=== PATIENT | male | born 1975 | race Two or more races ===

== ENCOUNTER 2025-06-02 21:37 | Emergency (ER) | payer MEDICAID, OTHER ==
[~2025-06-02] VITALS: Ht 167.6 cm; Wt 65.9 kg
--- NOTE | 2025-06-02 22:35 | ED.PDOC ---
GI ASSESSMENT HPI Comments 50 year old male presents to the ED via EMS with a chief complaint of suprapubic pain onset today (06/02/25) about 3 hours prior to ED arrival. Patient states he began experiencing sharp suprapubic pain radiating to LLQ and low back for the past 3 hours. Patient began experiencing intermittent suprapubic pain 3 days ago, pain worsen today. Daughter states patient began experiencing shortness of breath, chills, was cold to touch, 911 was called. Upon ED arrival temperature was 99.4 F, BP 116/90, O2 sat 99% on RA. Denies any PMHx as well as dizziness, blurry vision, nausea, vomiting, diarrhea, headache, dysuria, hematuria, melena, diarrhea, constipation. No other associated symptoms, modifiers, recent injuries or sick contacts present at this time. Chief Complaint: Abdominal Pain Time Seen by MD: 22:15 Reviewed Notes: Medications, Allergies Allergies: Coded Allergies: NO KNOWN ALLERGIES (Unverified , 06/02/25) Home Meds Active Scripts Metronidazole (Metronidazole) 500 Mg Tab, 500 MG PO BID for 7 Days, #14 TAB Prov:JOÃO NEWTON MD 06/03/25 Ciprofloxacin Hcl (Cipro) 250 Mg Tab, 250 MG PO BID for 7 Days, #14 TAB Prov:JOÃO NEWTON MD 06/03/25 Information Source: Patient, Relative (Child), Emergency Med Personnel Mode of Arrival: EMS Timing: Hours Duration: Since onset Prehospital treatment: None Quality: Sharp Severity: Moderate Recent: None Recent Hx of: None Pain Location: Suprapubic Modifying Factors: Nothing Associated sign and symptoms: Abdominal Pain Past Medical History PAST MEDICAL HISTORY: Denies Surgical History: Denies all surgeries Family History Family History: Reviewed,noncontributory to illness, No family hx of Cancer, No family hx of DM, No family hx of Heart rafael, No family hx of HTN, No family hx ofKidney rafael, No family hx of Liver rafael, No family hx of Lung rafael, No family hx of Stroke Social History Smoker: Non-Smoker Alcohol: Denies ETOH Use Drugs: Denies Drug Use Lives In: Home Constitutional: reports: chills; denies: diaphoresis, fatigue, fever, malaise, sweats, weakness, others EENTM: denies: blurred vision, double vision, ear bleeding, ear discharge, ear drainage, ear pain, ear ringing, eye pain, eye redness, hearing loss, mouth pain, mouth swelling, nasal discharge, nose bleeding, nose congestion, nose pain, photophobia, tearing, throat pain, throat swelling, voice changes, others Respiratory: reports: shortness of breath; denies: cough, hemoptysis, orthopnea, SOB at rest, SOB with excertion, stridor, wheezing, others Cardiovascular: denies: chest pain, dizzy spells, diaphoresis, Dyspnea on exertion, edema, irregular heart beat, left arm pain, lightheadedness, palpitations, PND, syncope, others Gastrointestinal: reports: abdominal pain, others (suprapubic); denies: abdomen distended, blood streaked bowels, constipated, diarrhea, dysphagia, difficulty swallowing, hematemesis, melena, nausea, poor appetite, poor fluid intake, rectal bleeding, rectal pain, vomiting Genitourinary: denies: burning, dysuria, flank pain, frequency, hematuria, incontinence, penile discharge, penile sore, pain, testicle pain, testicle swelling, urgency, others Neurological: denies: dizziness, fainting, headache, left sided numbness, left sided weakness, numbness, paresthesia, pre-existing deficit, right sided numbness, right sided weakness, seizure, speech problems, tingling, tremors, wea kness, others Musculoskeletal: reports: back pain; denies: gout, joint pain, joint swelling, muscle pain, muscle stiffness, neck pain, others Integumetry: denies: bruises, change in color, change in hair/nails, dryness, laceration, lesions, lumps, rash, wounds, others Allergic/Immunocompromised: denies: Difficulty Healing, Frequent Infections, Hives, Itching, others Hematologic/Lymphatic: denies: anemia, blood clots, easy bleeding, easy bruising, swollen glands, others Endocrine: denies: excessive hunger, excessive sweating, excessive thirst, excessive urination, flushing, intolerance to cold, intolerance to heat, unexplained weight gain, unexplained weight loss, others Psychiatric: denies: anxiety, bipolar disorder, depression, hopeless, panic disorder, schizophrenia, sleepless, suicidal, others All Other Systems: Reviewed and Negative Physical Exam General Appearance: Normal HEENT: Normal ENT Inspection, Pharynx Normal, TMs Normal Neck: Full Range of Motion, Non-Tender, Normal, Normal Inspection Respiratory: Chest Non-Tender, Lungs Clear, No Accessory Muscle Use, No Respiratory Distress, Normal Breath Sounds Cardiovascular: No Edema, No JVD, No Murmur, No Gallop, Normal Peripheral Pulses, Regular Rate/Rhythm Breast Exam: Deferred Gastrointestinal: No Organomegaly, Non Tender, No Pulsatile Mass, Normal Bowel Sounds, Soft Genitalia: Deferred Pelvic: Deferred Rectal: Deferred Extremities: No calf tenderness, Normal capillary refill, Normal inspection, Normal range of motion, Non-tender, No pedal edema Musculoskeletal : Apperance: Normal Neurologic: Alert, yield improvement engineer II-XII nml as Tested, No Motor Deficits, Normal Affect, Normal Mood, No Sensory Deficits Cerebellar Function: Normal Reflexes: Normal Skin: Dry, Normal Color, Warm Lymphatic: No Adenopathy Was a procedure done? Was a procedure done?: No GI differential Dx Differential Diagnosis: Appendicitis, UTI, Urolithiasis, Dehydration, Electrolyte Imbalance, Other X-Ray, Labs, Meds, VS Vital Signs Date Time Temp Pulse Resp B/P (MAP) Pulse Ox O2 Delivery O2 Flow Rate FiO2 06/03/25 05:23 98.3 113 16 125/69 (87) 99 98.3 06/03/25 05:19 113 20 99 Room Air* 0 21 06/03/25 04:56 129 22 130/79 06/03/25 02:31 78 16 98/67 06/03/25 01:23 99.2 107 18 100/65 (77) 97 99.2 06/03/25 01:22 107 18 100/65 06/02/25 21:46 99.4 88 20 116/60 99 99.4 Lab Test 06/03/25 02:30 06/02/25 22:40 Range/Units Urine Color Yellow Yellow Urine Clarity Clear Clear Urine pH 5.5 5.0-9.0 Urine Specific [place] > 1.050 H 1.001-1.035 Urine Protein Negative Negative Urine Ketones Negative Negative Urine Blood Trace H Negative /uL Urine Nitrite Negative Negative Urine Bilirubin Negative Negative Urine Urobilinogen 2 H Negative mg/dL Urine Leukocyte Esterase Negative Negative /uL Urine RBC 2 0 - 3 /hpf Urine Microscopic WBC 1 0-3 /HPF Urine Squamous Epithelial Cells Few <5 /hpf Urine Bacteria None seen None Seen /hpf Urine Hyaline Casts Few 0 - 2 /lpf Urine Glucose Normal Normal mg/dL White Blood Count 11.2 H 4.4-10.8 10^3/uL Red Blood Count 5.78 4.5-5.90 10^6/uL Hemoglobin 18.5 H 13.5-17.5 g/dL Hematocrit 52.4 41.0-53.0 % Mean Corpuscular Volume 90.6 80.0-100.0 fL Mean Corpuscular Hemoglobin 32.0 28.0-32.0 pg Mean Corpuscular Hemoglobin Concent 35.3 32.0-36.0 g/dL Red Cell Distribution Width 13.1 11.8-14.3 % Platelet Count 518 H 140-450 10^3/uL Mean Platelet Volume 7.5 6.9-10.8 fL Neutrophils (%) (Auto) 89.2 H 37.0-80.0 % Lymphocytes (%) (Auto) 8.5 L 10.0-50.0 % Monocytes (%) (Auto) 1.9 0.0-12.0 % Eosinophils (%) (Auto) 0.3 0.0-7.0 % Basophils (%) (Auto) 0.1 0.0-2.0 % Neutrophils # (Auto) 10.0 H 1.6-8.6 10 ^3/uL Lymphocytes # (Auto) 1.0 0.4-5.4 10 ^3/uL Monocytes # (Auto) 0.2 0-1.3 10 ^3/uL Eosinophils # (Auto) 0 0-0.8 10 ^3/uL Basophils # (Auto) 0 0-0.2 10 ^3/uL Nucleated Red Blood Cells 0.0 % Sodium Level 139 136-145 mmol/L Potassium Level 4.2 3.5-5.1 mmol/L Chloride Level 103 98-107 mmol/L Carbon Dioxide Level 28 20-31 mmol/L Anion Gap 8 5-15 Blood Urea Nitrogen 16 9-23 mg/dL Creatinine 1.24 0.700-1.30 mg/dL Glomerular Filtration Rate Calc 71 >90 mL/min BUN/Creatinine Ratio 12.9 10.0-20.0 Serum Glucose 111 H 74-106 mg/dL Calcium Level 9.7 8.7-10.4 mg/dL Total Bilirubin 0.8 0.2-1.0 mg/dL Aspartate Amino Transferase (AST) 68 H 13-40 U/L Alanine Aminotransferase (ALT) 76 H 7-40 U/L Alkaline Phosphatase 164 H 46-116 U/L Total Protein 7.7 5.7-8.2 g/dL Albumin 5.0 H 3.2-4.8 g/dL Lipase 35 12-53 U/L Current Medications Medications (Trade) Dose Ordered Sig/Lucy Route Start Time Stop Time Status Last Admin Ondansetron HCl (Zofran) 4 mg ONCE ONCE IV 06/02/25 22:45 06/02/25 22:46 DC 06/03/25 01:21 Sodium Chloride 1,000 ml @ 1,000 mls/hr Q1H ONCE IVB 06/02/25 22:45 06/02/25 23:44 DC 06/03/25 01:22 Morphine Sulfate 4 mg ONCE ONCE IV 06/02/25 22:45 06/02/25 22:46 DC 06/03/25 01:22 Ciprofloxacin (Cipro Tablet) 250 mg ONCE ONCE PO 06/03/25 04:45 06/03/25 04:46 DC 06/03/25 05:13 Metronidazole (Flagyl Tablet) 500 mg ONCE ONCE PO 06/03/25 04:45 06/03/25 04:46 DC 06/03/25 05:06 Hydromorphone HCl (Dilaudid Injection) 1 mg ONCE ONCE IM 06/03/25 05:00 06/03/25 05:01 DC 06/03/25 04:56 Time of 1ST Reevaluation: 22:45 Reevaluation 1ST: Unchanged Patient Education/Counseling: Diagnosis, Treatment, Prognosis Family Education/Counseling: Diagnosis, Treatment, Prognosis Additional Information The following tests were ordered, and results were reviewed by me: CBC, CMP, LIPASE, UA, CT AB PEL WITH IV CON Additional Information was gathered from interviewing the following independent historians: EMS, daughter I reviewed and agreed with the following test results read by other providers: CT AB PEL WITH IV CON I discussed treatment and results with medical personnel and: patient and daughter Comprehensive systems review obtained and negative except for what is stated in the HPI. SEPSIS Sepsis Screen Date sepsis recognized/suspect: Jun 02, 2025 Time Sepsis recognized/suspect: 2145 Recent Procedure: No On Antibiotic Therapy: No Respiratory Rate >20: No Heart Rate >90: No Temp<36 C (96.8 F) or >38.3 C: No SBP <90 or MAP <65 mmHG: No New Acute Mental Status Change: No Is the patient on CPAP, BIPAP,: No Physician Orders Ct Ab Pel With Iv Con Only (06/02/25 22:31) Vital Signs Date Time Temp Pulse Resp B/P (MAP) Pulse Ox O2 Delivery O2 Flow Rate FiO2 06/03/25 05:23 98.3 113 16 125/69 (87) 99 98.3 06/03/25 05:19 113 20 99 Room Air* 0 21 06/03/25 04:56 129 22 130/79 06/03/25 02:31 78 16 98/67 06/03/25 01:23 99.2 107 18 100/65 (77) 97 99.2 06/03/25 01:22 107 18 100/65 06/02/25 21:46 99.4 88 20 116/60 99 99.4 Laboratory Tests Test 06/02/25 22:40 White Blood Count 11.2 10^3/uL (4.4-10.8) H Medications Medications Dose Ordered Sig/Lucy Route Start Time Stop Time Status Last Admin Dose Admin Ciprofloxacin 250 mg ONCE ONCE PO 06/03/25 04:45 06/03/25 04:46 DC 06/03/25 05:13 Hydromorphone HCl 1 mg ONCE ONCE IM 06/03/25 05:00 06/03/25 05:01 DC 06/03/25 04:56 Metronidazole 500 mg ONCE ONCE PO 06/03/25 04:45 06/03/25 04:46 DC 06/03/25 05:06 Morphine Sulfate 4 mg ONCE ONCE IV 06/02/25 22:45 06/02/25 22:46 DC 06/03/25 01:22 Ondansetron HCl 4 mg ONCE ONCE IV 06/02/25 22:45 06/02/25 22:46 DC 06/03/25 01:21 Sodium Chloride 1,000 ml @ 1,000 mls/hr Q1H ONCE IVB 06/02/25 22:45 06/02/25 23:44 DC 06/03/25 01:22 Departure 1 Departure Time of Disposition: 01:00 Impression: Primary Impression: Abdominal pain Additional Impression: Diverticulitis of intestine Disposition: HOME / SELF CARE / HOMELESS Admit to: Med Surg Condition: Stable e-Prescriptions Metronidazole (Metronidazole) 500 Mg Tab 500 MG PO BID for 7 Days, #14 TAB Prov: JOÃO NEWTON MD 06/03/25 Ciprofloxacin Hcl (Cipro) 250 Mg Tab 250 MG PO BID for 7 Days, #14 TAB Prov: JOÃO NEWTON MD 06/03/25 Discharged With: Self Critical Care Note Critical Care Time?: No Stability Stability form required: No I personally scribed for JOÃO NEWTON MD ([email or web address]) on 06/02/25 at 22:35. Electronically submitted by Kait Moyer ([email or web address]). I personally scribed for JOÃO NEWTON MD ([email or web address]) on 06/02/25 at 22:51. Electronically submitted by Kait Moyer ([email or web address]). JOÃO NEWTON MD Jun 02, 2025 22:35
[2025-06-02 22:54] LABS: Nucleated Red Blood Cells % 0.0 %
[2025-06-02 22:55] LABS: Hematocrit 52.4 % (41.0-53.0); Hemoglobin 18.5 g/dL (13.5-17.5); Mean Corpuscular Hemoglobin 32.0 pg (28.0-32.0); Mean Corpuscular Volume 90.6 fL (80.0-100.0)
[2025-06-02 23:15] LABS: Anion Gap 8 (5-15); BUN/Creatinine Ratio 12.9 (10.0-20.0); Blood Urea Nitrogen 16 mg/dL (9-23); Calcium 9.7 mg/dL (8.7-10.4); Carbon Dioxide 28 mmol/L (20-31); Chloride 103 mmol/L (98-107); Lipase 35 U/L (12-53); Potassium 4.2 mmol/L (3.5-5.1); Sodium 139 mmol/L (136-145); Total Protein 7.7 g/dL (5.7-8.2)
[2025-06-02 23:16] LABS: Bilirubin, Total 0.8 mg/dL (0.2-1.0)
[2025-06-02 23:23] LABS: Alanine Aminotransferase 76 U/L (7-40); Albumin 5.0 g/dL (3.2-4.8); Alkaline Phosphatase 164 U/L (46-116); Glucose 111 mg/dL (74-106)
[2025-06-03] MEDS: ONDANSETRON HCL 4 MG/2 ML VIAL IV ONE (01:21)
[2025-06-03] MEDS: MORPHINE SULFATE 4 MG/ML SYR/VIAL IV ONE (01:22)
[2025-06-03] MEDS: SODIUM CHLORIDE 0.9% 1,000 ML IVB ONE (01:22)
[2025-06-03] MEDS: IOHEXOL 300 MG/ML 100ML BOTTLE IJ ONE (02:14)
--- NOTE | 2025-06-03 02:40 | DVH ---
Exam: CT CT AB PEL WITH IV CON ONLY History: LLQ pain COMPARISON: None Technique: Multidetector spiral CT of the abdomen and pelvis was performed from lung bases to pubic s ymphysis. Intravenous contrast was administered during this examination. Portal venous imaging was o btained. Axial, coronal and sagittal multiplanar reformats were performed by the technologist on a [employer] workstation. Radiation Dose : 1. Abdomen/Pelvis: CTDIvol 10.42 mGy, DLP 599.51 mGy*cm. CONTRAST: Type of contrast: Omnipaque 300 Contrast injected: 100 ml Findings: Lung Bases: No acute or significant lung base finding. Moderate posterior bibasilar atelectasis. Nor mal heart size. No pleural or pericardial effusion. Liver: The liver is enlarged, measuring 20.1 cm in craniocaudal dimension. No focal lesions. Normal hepatic vascular enhancement. Gallbladder and Biliary Tree: Cholelithiasis. Spleen: Unremarkable Pancreas: The pancreas is normal in appearance without focal lesions or abnormal enhancement. Adrenal Glands: Unremarkable Kidneys: No hydronephrosis. Bladder: Unremarkable Bowel: Moderate gastric distention. Significant circumferential wall thickening and intramural edema of the distal descending and proximal sigmoid colon in the presence of multiple diverticula with exte nsive adjacent inflammatory changes. No evidence of organized fluid collection to suggest abscess, no r is there evidence of perforation. The small bowel is normal in its course and caliber. The appendix is normal. Ascites: Small volume lower abdominal and pelvic ascites. Lymphadenopathy: No mesenteric, retroperitoneal or periportal lymphadenopathy. Abdominal Wall and Mesentery: Unremarkable. Vasculature: The visualized abdominal aorta is normal in size and caliber. Atherosclerotic vascular c alcifications. Abdominal and pelvic vessels demonstrate normal enhancement. Pelvic Organs: The prostate is enlarged, measuring 6.1 cm in transverse dimension. Musculoskeletal: No aggressive focal bony lesions, acute fractures or dislocation. IMPRESSION: 1. Acute diverticulitis of the distal descending /proximal sigmoid colon with adjacent inflammatory c hanges and small volume ascites. No definite evidence of abscess or perforation of the hollow viscus at this time. 2. Cholelithiasis. 3. Hepatomegaly. 4. Prostatomegaly. Radiation optimization: All CT scans at this facility use at least one of these dose optimization carmencita hniques: automated exposure control mA and/or kV adjustment per patient size (includes targeted exam s where dose is matched to clinical indication) or iterative reconstruction.
[2025-06-03 03:20] LABS: Urine Protein, UAD Negative (Negative)
[2025-06-03] MEDS ORDERED: MET500T PO (04:36)
[2025-06-03] MEDS ORDERED: CIPR-273 PO (04:36)
[2025-06-03] MEDS: HYDROmorphone HCL 2 MG/ML VL/or syr IM ONE (04:56)
[2025-06-03] MEDS: metroNIDAZOLE 500 MG TAB PO ONE (05:06)
[2025-06-03] MEDS: CIPROFLOXACIN HYDROCHLORIDE 250 MG TAB PO ONE (05:13)
[2025-06-03 05:19] VITALS: PULSE 113; RESP 20; O2SAT 99
[2025-06-03 05:23] VITALS: BP 125/69; PULSE 113; RESP 16; TEMP 98.3; O2SAT 99
== END 2025-06-03 05:24 | disposition home or self-care (01) ==
LOC: EDBD 21:37 → ER 21:37
DX: K57.32 Diverticulitis of large intestine without perforation or abscess without bleeding (principal); R10.2 Pelvic and perineal pain; Z79.899 Other long term (current) drug therapy
CPT/HCPCS: 36415; 74177; 80053; 81001; 83690; 85025; 96361; 96372; 96374; 96375; 99285; J1171; J2270; J2405; J7030; Q9967

== ENCOUNTER 2025-06-15 08:05 | Inpatient (IN) | payer MEDICAID ==
[~2025-06-15] VITALS: Ht 165.1 cm; Wt 66.6 kg
[~2025-06-15 08:05] MED LIST: CIPR-273 PO; MET500T PO
--- NOTE | 2025-06-15 08:35 | ED.PDOC ---
HPI (NEURO) HPI Comments 50 y/o M, with no prior medical history presents to the ED for CC of right sided weakness. Patient states, he has been experiencing right sided arm weakness with associated numbness sudden onset, 0600 this morning. Patient reports, to have lose of child attendant strength in his right hand and being unable to close his hand into a fist. Patient denies blurred vision, slurred speech, or headache. No other symptoms or modifying factors present at this time. Chief Complaint: Right Sided Weakness Time Seen by MD: 08:15 Reviewed Notes: Nurses Notes, Medications, Allergies Information Source: Patient Mode of Arrival: Ambulatory Severity: Moderate Dizziness/Weakness Severity: Unable to do activities Headache Severity: None Timing: Minutes Duration: Since onset Prehospital treatment: None Weakness Location: (R) Arm Numbness Location: (R) Arm Onset: At rest Circumstances: Spontaneous Symptoms: Weakness Before: Normal During: Awake After: Normal Mentation History of: None Modifying factors: Nothing Associated Signs and Symptoms: Weakness, Numbness Past Medical History PAST MEDICAL HISTORY: Denies Surgical History: Denies all surgeries Family History Family History: Reviewed,noncontributory to illness, No family hx of Cancer, No family hx of DM, No family hx of Heart rafael, No family hx of HTN, No family hx of Kidney rafael, No family hx of Liver rafael, No family hx of Lung rafael, No family hx of Stroke Social History Smoker: Non-Smoker Alcohol: Denies ETOH Use Drugs: Denies Drug Use Lives In: Home Constitutional: denies: chills, diaphoresis, fatigue, fever, malaise, sweats, weakness, others EENTM: denies: blurred vision, double vision, ear bleeding, ear discharge, ear drainage, ear pain, ear ringing, eye pain, eye redness, hearing loss, mouth pain, mouth swelling, nasal discharge, nose bleeding, nose congestion, nose pain, photophobia, tearing, throat pain, throat swelling, voice changes, others Respiratory: denies: cough, hemoptysis, orthopnea, SOB at rest, shortness of breath, SOB with excertion, stridor, wheezing, others Cardiovascular: denies: chest pain, dizzy spells, diaphoresis, Dyspnea on exertion, edema, irregular heart beat, left arm pain, lightheadedness, palpitations, PND, syncope, others Gastrointestinal: denies: abdomen distended, abdominal pain, blood streaked bowels, constipated, diarrhea, dysphagia, difficulty swallowing, hematemesis, melena, nausea, poor appetite, poor fluid intake, rectal bleeding, rectal pain, vomiting, others Genitourinary: denies: burning, dysuria, flank pain, frequency, hematuria, incontinence, penile discharge, penile sore, pain, testicle pain, testicle swelling, urgency, others Neurological: reports: right sided weakness; denies: dizziness, fainting, headache, left sided numbness, left sided weakness, numbness, paresthesia, pre- existing deficit, right sided numbness, seizure, speech problems, tingling, tremors, weakness, others Musculoskeletal: denies: back pain, gout, joint pain, joint swelling, muscle pain, muscle stiffness, neck pain, others Integumetry: denies: bruises, change in color, change in hair/nails, dryness, laceration, lesions, lumps, rash, wounds, others Allergic/Immunocompromised: denies: Difficulty Healing, Frequent Infections, Hives, Itching, others Hematologic/Lymphatic: denies: anemia, blood clots, easy bleeding, easy bruising, swollen glands, others Endocrine: denies: excessive hunger, excessive sweating, excessive thirst, excessive urination, flushing, intolerance to cold, intolerance to heat, unexplained weight gain, unexplained weight loss, others Psychiatric: denies: anxiety, bipolar disorder, depression, hopeless, panic disorder, schizophrenia, sleepless, suicidal, others All Other Systems: Reviewed and Negative Physical Exam General Appearance: No Apparent Distress, Normal HEENT: Normal ENT Inspection, Pharynx Normal Neck: Full Range of Motion, Non-Tender, Normal, Normal Inspection Respiratory: Chest Non-Tender, Lungs Clear, No Accessory Muscle Use, No Respiratory Distress, Normal Breath Sounds Cardiovascular: No Edema, No Murmur, No Gallop, Normal Peripheral Pulses, Reg ular Rate/Rhythm Breast Exam: Deferred Gastrointestinal: No Organomegaly, Non Tender, No Pulsatile Mass, Normal Bowel Sounds, Soft Genitalia: Deferred Pelvic: Deferred Rectal: Deferred Extremities: No calf tenderness, Normal capillary refill, Normal inspection, Normal range of motion, Non-tender, No pedal edema Musculoskeletal : Apperance: Normal Neurologic: Alert, traveling crane operator II-XII nml as Tested, Normal Affect, Normal Mood, No Sensory Deficits, Other (right arm weakness) Cerebellar Function: Normal Reflexes: Normal Skin: Dry, Normal Color, Warm Lymphatic: No Adenopathy Was a procedure done? Was a procedure done?: No Differential Diagnosis (SZ) Seizure: N/A CVA: CVA, Mass Lesion, TIA X-Ray, Labs, Meds, VS Vital Signs Date Time Temp Pulse Resp B/P (MAP) Pulse Ox O2 Delivery O2 Flow Rate FiO2 06/15/25 08:13 85 06/15/25 08:05 98.1 86 18 130/84 96 98.1 Lab Test 06/15/25 08:20 Range/Units White Blood Count 9.2 4.4-10.8 10^3/uL Red Blood Count 5.31 4.5-5.90 10^6/uL Hemoglobin 16.6 13.5-17.5 g/dL Hematocrit 47.8 41.0-53.0 % Mean Corpuscular Volume 90.1 80.0-100.0 fL Mean Corpuscular Hemoglobin 31.2 28.0-32.0 pg Mean Corpuscular Hemoglobin Concent 34.7 32.0-36.0 g/dL Red Cell Distribution Width 13.2 11.8-14.3 % Platelet Count 635 H 140-450 10^3/uL Mean Platelet Volume 7.0 6.9-10.8 fL Neutrophils (%) (Auto) 77.4 37.0-80.0 % Lymphocytes (%) (Auto) 16.3 10.0-50.0 % Monocytes (%) (Auto) 4.6 0.0-12.0 % Eosinophils (%) (Auto) 1.2 0.0-7.0 % Basophils (%) (Auto) 0.5 0.0-2.0 % Neutrophils # (Auto) 7.1 1.6-8.6 10 ^3/uL Lymphocytes # (Auto) 1.5 0.4-5.4 10 ^3/uL Monocytes # (Auto) 0.4 0-1.3 10 ^3/uL Eosinophils # (Auto) 0.1 0-0.8 10 ^3/uL Basophils # (Auto) 0 0-0.2 10 ^3/uL Nucleated Red Blood Cells 0.1 % Prothrombin Time 11.2 9.3-11.8 sec Prothrombin Time INR 1.06 0.9-1.15 Activated Partial Thromboplast Time 27.6 24.5-34.5 SEC Sodium Level 141 136-145 mmol/L Potassium Level 3.7 3.5-5.1 mmol/L Chloride Level 104 98-107 mmol/L Carbon Dioxide Level 28 20-31 mmol/L Anion Gap 9 5-15 Blood Urea Nitrogen 9 9-23 mg/dL Creatinine 0.80 0.700-1.30 mg/dL Glomerular Filtration Rate Calc 108 >90 mL/min BUN/Creatinine Ratio 11.3 10.0-20.0 Serum Glucose 100 74-106 mg/dL Calcium Level 9.3 8.7-10.4 mg/dL Magnesium Level 2.1 1.6-2.6 mg/dL Total Bilirubin 0.5 0.2-1.0 mg/dL Aspartate Amino Transferase (AST) 16 13-40 U/L Alanine Aminotransferase (ALT) 12 7-40 U/L Alkaline Phosphatase 77 46-116 U/L Troponin I High Sensitivity 3 L </=54 ng/L B-Type Natriuretic Peptide 22.07 0-100 pg/mL Total Protein 7.6 5.7-8.2 g/dL Albumin 4.5 3.2-4.8 g/dL Time of 1ST Reevaluation: 08:45 Reevaluation 1ST: Unchanged Patient Education/Counseling: Diagnosis, Treatment Family Education/Counseling: No Family Present Departure 1 Departure Time of Disposition: 09:13 (Patient with a acute stroke. Patient is out of the window for tPA. We will admit patient for further workup and expert consultation) Impression: Primary Impression: Acute stroke due to ischemia Additional Impression: Right hand weakness Disposition: 09 ADMITTED INPATIENT Admit to: Tele Condition: Guarded Critical Care Note Critical Care Time?: Yes Critical care comment: Acute Stroke Authorized and Performed by: Corbin Crisostomo MD Total critical care time: Approximately 114 minutes Due to a high probability of clinically significant, life threatening deterioration, the patient required my highest level of preparedness to intervene emergently and I personally spent this critical care time directly and personally managing the patient. This critical care time included obtaining a history; examining the patient; pulse oximetry; ordering and review of studies; arranging urgent treatment with development of a management plan; evaluation of patient's response to treatment; frequent reassessment; and, discussions with other providers. This critical care time was performed to assess and manage the high probability of imminent, life-threatening deterioration that could result in multi-organ failure. It was exclusive of separately billable procedures and treating other patients and teaching time. Please see my other sections and the rest of the note for further information on patient assessment and treatment. Stability Stability form required: No Heart Score Heart Score: Heart Score Response (Comments) Value History N/A 0 EKG N/A 0 Age N/A 0 Risk Factors N/A 0 Troponin N/A 0 Total 0 I personally scribed for CORBIN CRISOSTOMO MD ([email or web address]) on 06/15/25 at 08:35. Electronically submitted by Chiquita Strange ([email or web address]). CORBIN CRISOSTOMO MD Jun 15, 2025 08:35
[2025-06-15 08:41] LABS: Hematocrit 47.8 % (41.0-53.0); Hemoglobin 16.6 g/dL (13.5-17.5); Mean Corpuscular Hemoglobin 31.2 pg (28.0-32.0); Mean Corpuscular Volume 90.1 fL (80.0-100.0); Nucleated Red Blood Cells % 0.1 %
[2025-06-15 08:53] LABS: Alanine Aminotransferase 12 U/L (7-40); Albumin 4.5 g/dL (3.2-4.8); Alkaline Phosphatase 77 U/L (46-116); Anion Gap 9 (5-15); BUN/Creatinine Ratio 11.3 (10.0-20.0); Calcium 9.3 mg/dL (8.7-10.4); Carbon Dioxide 28 mmol/L (20-31); Chloride 104 mmol/L (98-107); Glucose 100 mg/dL (74-106); Magnesium 2.1 mg/dL (1.6-2.6); Potassium 3.7 mmol/L (3.5-5.1); Sodium 141 mmol/L (136-145); Total Protein 7.6 g/dL (5.7-8.2)
[2025-06-15 08:54] LABS: Bilirubin, Total 0.5 mg/dL (0.2-1.0); Blood Urea Nitrogen 9 mg/dL (9-23); INR 1.06 (0.9-1.15); Partial Thromboplastin Time 27.6 SEC (24.5-34.5); Prothrombin Time 11.2 sec (9.3-11.8)
--- NOTE | 2025-06-15 08:56 | DVH ---
EXAM: CT STROKE CTH INDICATION: right arm weakness 2 hours TECHNIQUE: CT of the head without intravenous contrast. Coronal and sagittal reformatted images are s ubmitted. Radiation Dose : 1. Head: CT Dose: CTDI volume is 54.68 mGy. Dose-length product is 1.71 mGy*cm The dose indicators for CT are the volume Computed Tomography (CT) Dose Index (CTDIvol) and the Dose Length Product (DLP), and are measured in units of mGy and mGy-cm, respectively. These indicators are not patient dose, but values generated from the CT scanner acquisition factors. The report includes radiation exposure data for exposures received during this examination. All CT scans at this medical facility are performed using dose modulation techniques as appropriate to a performed exam including the following: Automated exposure control was utilized; adjustment of the MA and/or KV according to patient size; and use of iterative reconstruction technique. COMPARISON: None FINDINGS: There is no evidence of acute intracranial hemorrhage, extra-axial collection, mass effect, midline s hift, herniation or hydrocephalus. The ventricles are patent. No hydrocephalus. Basal cisterns are patent. There is hypodensity with loss of dumont-white matter differentiation in the left parietal lobe. The visualized paranasal sinuses and mastoid air cells are clear. No depressed calvarial fracture. The surrounding soft tissues are unremarkable. IMPRESSION: 1. Hypodensity with loss of dumont-white matter differentiation in the left parietal lobe consistent wi th acute or subacute infarct. No acute intracranial hemorrhage or midline shift.
--- NOTE | 2025-06-15 08:59 | DVH ---
EXAM: XY CHEST XRAY 1 VIEW Indication: right arm weakness Technique: Single frontal view of the chest was obtained Comparison: None FINDINGS: Lines and Tubes: None Lungs: No focal consolidation. Pleura: No effusion. No pneumothorax. Cardiomediastinal contours: Unremarkable Bones: No acute osseous abnormality. IMPRESSION: No acute cardiopulmonary disease.
[2025-06-15] MEDS ORDERED: ACETAMINOPHEN 325 MG TAB PO PRN ×2 (09:45→10:00)
[2025-06-15] MEDS ORDERED: CLOPIDOGREL BISULFATE 75 MG TAB PO ONE (09:45)
[2025-06-15] MEDS ORDERED: MORPHINE SULFATE INJ 2 MG/ml SYRG IV PRN ×2 (09:45→10:00)
[2025-06-15] MEDS ORDERED: DOCUSATE SOD 100 MG CAP PO PRN ×2 (09:45→10:00)
[2025-06-15] MEDS ORDERED: ONDANSETRON HCL 4 MG/2 ML VIAL IV PRN ×2 (09:45→10:00)
[2025-06-15] MEDS ORDERED: NITROGLYCERIN 0.4 MG SL TAB SL PRN ×2 (09:45→10:00)
[2025-06-15] MEDS ORDERED: HYDROcodone-ACET 5/325MG TAB PO PRN (09:45)
[2025-06-15] MEDS: CLOPIDOGREL BISULFATE 75 MG TAB PO SCH (10:00)
[2025-06-15] MEDS ORDERED: CLOPIDOGREL BISULFATE 75 MG TAB PO SCH (10:00)
--- NOTE | 2025-06-15 10:15 | DVHHP2 ---
History of Present Illness Reason for Visit: Right hand weakness History of Present Illness Armando Pulido is a 50-year-old male with no significant past medical history however, he has never been to see a primary care provider, who came in for right hand weakness. Patient states he went to bed about 2200 last night. Woke up a bout 0530, and was feeling off, thought his hand was just asleep. He preceded to get ready and go to work. About 0700 when he was at work he realized that he could not hold a pen to write. He left work, went home changed, and then came to the ER. Initial CT scan show positive stroke, EKG was normal SR. Patient will be admitted for further workup and evaluation. Past Surgical History: None Smoke: Quit (2-3 year ago) ALCOHOL: none Drugs: None Lives: with Family Domestic Violence: Neg Review of Systems Constitutional: No: Fever, Chills, Sweats, Weakness, Malaise, Other Eyes: No: Pain, Vision change, Conjunctivae inflammation, Eyelid inflammation, Other, Redness ENT: No: Ear pain, Ear discharge, Nose pain, Nose discharge, Nose congestion, Mouth pain, Mouth swelling, Throat pain, Throat swelling, Other Respiratory: No: Cough, Dry, Shortness of breath, SOB with excertion, Wheezing, Hemoptysis, Pleuritic Pain, Sputum, Wheezing, Other Cardiovascular: No: Chest Pain, Palpitations, Orthopnea, Paroxysmal Noc. Dyspnea, Edema, Lt Headedness, Other Gastrointestinal: No: Nausea, Vomiting, Abdominal Pain, Diarrhea, Constipation, Melena, Hematochezia, Other Genitourinary: No Dysuria, No Frequency, No Incontinence, No Hematuria, No Ret ention, No Other Musculoskeletal: No: other, neck pain, shoulder pain, arm pain, back pain, hand pain, leg pain, foot pain Skin: No: Rash, Lesions, Jaundice, Bruising, Other Neurological: Weakness (right hand); No: Numbness, Incoordination, Change in speech, Confusion, Seizures, Other Allergies: Coded Allergies: NO KNOWN ALLERGIES (Unverified , 06/02/25) Exam Vital Signs Vital Signs Date Time Temp Pulse Resp B/P (MAP) Pulse Ox O2 Delivery O2 Flow Rate FiO2 06/15/25 09:22 98.4 80 20 111/69 (83) 95 98.4 06/15/25 09:22 Room Air General Appearance: Alert, Oriented X3, Cooperative, mild distress HEENT: Atraumatic, PERRLA, EOMI Respiratory: Clear to auscultation, Normal air movement Cardiovascular: Regular rate, Normal S1, Normal S2 Abdominal: Normal bowel sounds, Soft, No tenderness, No hepatospenomegaly Extremities: No clubbing, No cyanosis, No edema, Normal pulses, Other (right hand weakness) Skin: No rashes, No breakdown, No significant lesion Neuro: Normal gait, Normal speech, Normal tone, Other (Strength 3/5 in right hand) Psych/Mental Status: Mental status NL, Mood NL Labs/Xrays Labs Test 06/15/25 08:20 Range/Units White Blood Count 9.2 4.4-10.8 10^3/uL Red Blood Count 5.31 4.5-5.90 10^6/uL Hemoglobin 16.6 13.5-17.5 g/dL Hematocrit 47.8 41.0-53.0 % Mean Corpuscular Volume 90.1 80.0-100.0 fL Mean Corpuscular Hemoglobin 31.2 28.0-32.0 pg Mean Corpuscular Hemoglobin Concent 34.7 32.0-36.0 g/dL Red Cell Distribution Width 13.2 11.8-14.3 % Platelet Count 635 H 140-450 10^3/uL Mean Platelet Volume 7.0 6.9-10.8 fL Neutrophils (%) (Auto) 77.4 37.0-80.0 % Lymphocytes (%) (Auto) 16.3 10.0-50.0 % Monocytes (%) (Auto) 4.6 0.0-12.0 % Eosinophils (%) (Auto) 1.2 0.0-7.0 % Basophils (%) (Auto) 0.5 0.0-2.0 % Neutrophils # (Auto) 7.1 1.6-8.6 10 ^3/uL Lymphocytes # (Auto) 1.5 0.4-5.4 10 ^3/uL Monocytes # (Auto) 0.4 0-1.3 10 ^3/uL Eosinophils # (Auto) 0.1 0-0.8 10 ^3/uL Basophils # (Auto) 0 0-0.2 10 ^3/uL Nucleated Red Blood Cells 0.1 % Prothrombin Time 11.2 9.3-11.8 sec Prothrombin Time INR 1.06 0.9-1.15 Activated Partial Thromboplast Time 27.6 24.5-34.5 SEC Sodium Level 141 136-145 mmol/L Potassium Level 3.7 3.5-5.1 mmol/L Chloride Level 104 98-107 mmol/L Carbon Dioxide Level 28 20-31 mmol/L Anion Gap 9 5-15 Blood Urea Nitrogen 9 9-23 mg/dL Creatinine 0.80 0.700-1.30 mg/dL Glomerular Filtration Rate Calc 108 >90 mL/min BUN/Creatinine Ratio 11.3 10.0-20.0 Serum Glucose 100 74-106 mg/dL Calcium Level 9.3 8.7-10.4 mg/dL Magnesium Level 2.1 1.6-2.6 mg/dL Total Bilirubin 0.5 0.2-1.0 mg/dL Aspartate Amino Transferase (AST) 16 13-40 U/L Alanine Aminotransferase (ALT) 12 7-40 U/L Alkaline Phosphatase 77 46-116 U/L Troponin I High Sensitivity 3 L </=54 ng/L B-Type Natriuretic Peptide 22.07 0-100 pg/mL Total Protein 7.6 5.7-8.2 g/dL Albumin 4.5 3.2-4.8 g/dL EXAM: XY CHEST XRAY 1 VIEW FINDINGS: Lines and Tubes: None Lungs: No focal consolidation. Pleura: No effusion. No pneumothorax. Cardiomediastinal contours: Unremarkable Bones: No acute osseous abnormality. IMPRESSION: No acute cardiopulmonary disease. EXAM: CT STROKE CTH FINDINGS: There is no evidence of acute intracranial hemorrhage, extra-axial collection, mass effect, midline shift, herniation or hydrocephalus. The ventricles are patent. No hydrocephalus. Basal cisterns are patent. There is hypodensity with loss of dumont-white matter differentiation in the left parietal lobe. The visualized paranasal sinuses and mastoid air cells are clear. No depressed calvarial fracture. The surrounding soft tissues are unremarkable. IMPRESSION: 1. Hypodensity with loss of dumont-white matter differentiation in the left parietal lobe consistent with acute or subacute infarct. No acute intracranial hemorrhage or midline shift. SEPSIS Sepsis Screen Date sepsis recognized/suspect: Jun 15, 2025 Time Sepsis recognized/suspect: 805 Recent Procedure: No On Antibiotic Therapy: No Respiratory Rate >20: No Heart Rate >90: No Temp<36 C (96.8 F) or >38.3 C: No SBP <90 or MAP <65 mmHG: No New Acute Mental Status Change: No Is the patient on CPAP, BIPAP,: No Physician Orders Stroke Assessment (06/15/25 08:11) Vital Signs .PER UNIT PROTOCOL (06/15/25 08:11) Digitizer Operator (06/15/25 08:11) Accurate Weight In Kg (06/15/25 08:11) Electrocardigram (06/15/25 08:11) Accucheck (06/15/25 08:11) Ct Head Cva (06/15/25 08:11) Chest Xray 1 View (06/15/25 08:11) * Neurology Consult (06/15/25 08:11) 2 Large Bore Ivs (20mg Or Larg (06/15/25 08:11) Nursing Dysphagia Screen (06/15/25 08:11) Neuro Checks Per Unit Protocol (06/15/25 08:11) Electrocardigram (06/15/25 09:11) Electrocardigram (06/15/25 11:11) Troponin-I Hs (06/15/25 09:11) Troponin-I Hs (06/15/25 11:11) Admit (06/15/25 09:36) Code Status (06/15/25 09:36) Sodium Chloride Lock (Saline Lock Ns) (06/15/25 14:00) Hydrocodone-Acet 5/325mg Tab ([place] 5/32 (06/15/25 09:45) Ondansetron Hcl (Zofran) (06/15/25 09:45) Docusate Sodium Capsule (Colace Capsule) (06/15/25 09:45) Complete Blood Count (06/16/25 04:00) Comprehensive Metabolic Panel (06/16/25 04:00) Echo 2d Mode Cardiac Dop (06/15/25 09:36) Condition: Serious (06/15/25 09:36) Acetaminophen Tablet (Tylenol Tablet) (06/15/25 09:45) Nitroglycerin Sublingual (Ntrostat Subli (06/15/25 09:45) Morphine Sulfate Injection (06/15/25 09:45) Stat Ekg For Chest Pain (06/15/25 09:36) Notify Md Of Changes From Base (06/15/25 09:36) Appliance Adjuster For 24 Hours (06/15/25 09:36) Emergency Dysrhythmia Protocol (06/15/25 09:36) Rhythm Strips Once Every Shift (06/15/25 09:36) Vital Signs Date Time Temp Pulse Resp B/P (MAP) Pulse Ox O2 Delivery O2 Flow Rate FiO2 06/15/25 09:22 98.4 80 20 111/69 (83) 95 98.4 06/15/25 09:22 80 20 95 Room Air 06/15/25 08:13 85 06/15/25 08:05 98.1 86 18 130/84 96 98.1 Laboratory Tests Test 06/15/25 08:20 White Blood Count 9.2 10^3/uL (4.4-10.8) Assessment/Plan Assessment/Plan Assessment: Acute stroke due to ischemia, Plan: Admit to Tele, Neurology consult, ECHO, Carotid duplex, MRI of the brain, EKG, Lipid panel, A1c, TSH, Start on ASA, Lipitor, and Plavix, Occupational therapy, Social service consult for outpatient therapy, Plan discussed with: Patient My Orders Orders - MAKI MARTIN Procedure Category Date Status Time Admit ADMIT 06/15/25 Verified 09:36 Code Status CODE 06/15/25 Verified 09:36 Sodium Chloride Lock PHA 06/15/25 Verified (Saline Lock Ns) 14:00 Hydrocodone-Acet PHA 06/15/25 Verified 5/325mg Tab ([place] 09:45 Ondansetron Hcl PHA 06/15/25 Verified (Zofran) 09:45 Docusate Sodium PHA 06/15/25 Verified Capsule (Colace 09:45 Complete Blood Count LAB 06/16/25 Verified 04:00 Comprehensive LAB 06/16/25 Verified Metabolic Panel 04:00 Echo 2d Mode Cardiac US 06/15/25 Verified DOP 09:36 Condition: Serious LINDA 06/15/25 Verified 09:36 Acetaminophen Tablet PHA 06/15/25 Verified (Tylenol Tablet) 09:45 Nitroglycerin PHA 06/15/25 Verified Sublingual (Ntrostat 09:45 Morphine Sulfate PHA 06/15/25 Verified Injection 09:45 Stat Ekg For Chest LINDA 06/15/25 Verified Pain 09:36 Notify Of Changes [facility] 06/15/25 Verified From Base 09:36 Appliance Adjuster For [facility] 06/15/25 Verified 24 Hours 09:36 Emergency Dysrhythmia [facility] 06/15/25 Verified Protocol 09:36 Rhythm Strips Once [facility] 06/15/25 Verified Every Shift 09:36 Date of Service: Jun 15, 2025 Billing Provider: MAKI MARTIN Common Visit Codes: [id number] INP/OBS CARE (HIGH) MAKI MARTIN Jun 15, 2025 10:15
--- NOTE | 2025-06-15 10:42 | DVH ---
EXAMINATION: MRI BRAIN HEAD WO CONTRAST INDICATION: Acute stroke due to ischemia COMPARISON: CT scan of the head performed earlier same date. TECHNIQUE: Multiplanar, multisequence magnetic resonance imaging of the brain was performed without the use of i ntravenous contrast. FINDINGS: There is restricted diffusion in the left parietal lobe, confirming the acute infarcts seen on CT sca n of the head same date. Additional serpiginous foci of restricted diffusion in the left occipital a nd left posterior frontal lobe consistent with smaller acute cortical infarcts. No intracranial hemor rhage. No mass effect. There is periventricular/deep white matter T2/FLAIR hyperintensity is nonspecific, but most commonly associated with chronic microvascular disease. The ventricles and sulci are normal in size for age. Clear basal cisterns. Flow voids in the major intracranial vessels are maintained. No abnormality of the orbits. Paranasal sinuses and mastoid air cells are clear. No abnormality of the visualized osseous structures and extracranial soft tissues. IMPRESSION: 1. Acute infarct seen in the left parietal lobe similar to prior CT scan of the head performed same d ate and communicated to the ordering clinician at the time of the CT interpretation. Additional smal ler acute cortical infarcts in the left occipital and left frontal lobe.
--- NOTE | 2025-06-15 10:45 | DVH ---
Carotid Duplex Clinical History: Acute stroke due to ischemia Comparison: CT STROKE CTH on DOS: 06/15/25 Technique: Duplex Doppler evaluation of the extracranial carotid and vertebral arteries including color Doppler and spectral/pulsed waveform analysis was performed. Findings: RIGHT SIDE: The peak systolic velocities are 112 cm/s in the CCA, 88 cm/s in the ICA. The ICA/CCA ratio is 0.8. The external carotid artery is patent with peak systolic velocity of 56 cm/s proximally. There is appropriate antegrade flow in the right vertebral artery. LEFT SIDE: The peak systolic velocities are 78 cm/s in the CCA, 74 cm/s in the ICA. The ICA/CCA ratio is 0.9. The external carotid artery is patent with peak systolic velocity of 66 cm/s proximally. There is appropriate antegrade flow in the left vertebral artery. IMPRESSION: No hemodynamically significant stenosis noted in the right carotid system. No hemodynamically significant stenosis noted in the left carotid system. Reference: Radiology 2003; 229:340-346 Normal ICA PSV is <125 cm/sec and no plaque or intimal thickening is visible sonographically addition al criteria include ICA/CCA PSV ratio <2.0 and ICA EDV <40 cm/sec <50% ICA stenosis ICA PSV is <125 cm/sec and plaque or intimal thickening is visible sonographically additional criteria include ICA/CCA PSV ratio <2.0 and ICA EDV <40 cm/sec 50-69% ICA stenosis ICA PSV is 125-230 cm/sec and plaque is visible sonographically additional criter ia include ICA/CCA PSV ratio of 2.0-4.0 and ICA EDV of 40-100 cm/sec 70% ICA stenosis but less than near occlusion ICA PSV is >230 cm/sec and visible plaque and luminal narrowing are seen at dumont-scale and color Doppler ultrasound (the higher the Doppler parameters lie above the threshold of 230 cm/sec, the greater the likelihood of severe disease) additional criteria include ICA/CCA PSV ratio >4 and ICA EDV >100 cm/sec
[2025-06-15 11:13] VITALS: PULSE 74; RESP 15; O2SAT 96
[2025-06-15] MEDS: CLOPIDOGREL BISULFATE 75 MG TAB PO ONE (11:13)
[2025-06-15] MEDS ORDERED: SODIUM CHLOR 0.9% PF (SALINE LOCK) 10ML VIAL/SYR IV SCH (14:00)
[2025-06-15] MEDS: SODIUM CHLOR 0.9% PF (SALINE LOCK) 10ML VIAL/SYR IV SCH (14:00)
--- NOTE | 2025-06-15 14:50 | DVHSR ---
APPROVED REPORT EXAM: Two-dimensional and M-mode echocardiogram with Doppler, color Doppler and Bubble Study. Blood Pressure: 111/69 mmHg INDICATION Acute stroke due to ischemia RISK FACTORS Height: 5'5", Weight: 145 DIMENSIONS LVDd4.0 (3.8-5.7cm)LA (2D)3.5 (1.9-4.0cm)Aortic Root3.6 (2.0-3.7cm) LVDs2.9 (2.5-4.0cm)LA (MM) (1.9-4.0cm)Aortic Cusp Exc1.8 (1.5-2.0cm) EF (%) 55.0 (55-70%)Rt. Atrium3.5 (1.9-4.0cm)Asc. Aorta cm IVSd1.0 (0.7-1.1cm)RV (D) (1.8-2.4cm) PWd0.9 (0.7-1.1cm) Mitral Valve MitralMitral Stenosis E wave0.67m/sMV Mean GR.mmHg A wave0.57m/sMV Peak GR.mmHg E/A ratio1.22D MVAcm2 DECEL [id number] 1/2 Timems Aortic Valve Aortic ValveAortic Stenosis V10.90m/[place] Mean GR.2mmHg V21.05m/[place] Peak GR.4mmHg LVOT Diameter2.0 (1.8-2.4cm)Doppler AVA2.69cm2 ATRIA Injection of bubbles documented no interatrial shunt. Other Information Technically limited study due to body habitus. Conclusion lvef 55% normal rv function normal atria no severe valve abnormalities noted
[2025-06-15 15:48] LABS: Triglycerides 184 mg/dL (< 150)
[2025-06-15 15:49] LABS: Cholesterol 163 mg/dL (< 200)
[2025-06-15 15:51] LABS: HDL Cholesterol 31 mg/dL (40-59)
[2025-06-15] MEDS ORDERED: ATORVASTATIN 20 MG TAB PO SCH (22:00)
[2025-06-16] VITALS (9 sets, daily range): BP systolic 97–112; BP diastolic 61–76; PULSE 56–75; RESP 16–18; TEMP 97.9–98.7; O2SAT 69–98
[2025-06-16] MEDS: ATORVASTATIN 20 MG TAB PO SCH ×2 (00:07→20:00)
[2025-06-16 06:22] LABS: Hematocrit 43.2 % (41.0-53.0); Nucleated Red Blood Cells % 0.0 %
[2025-06-16 06:25] LABS: Hemoglobin 15.1 g/dL (13.5-17.5); Mean Corpuscular Hemoglobin 31.3 pg (28.0-32.0); Mean Corpuscular Volume 89.4 fL (80.0-100.0)
[2025-06-16 06:46] LABS: Alanine Aminotransferase 11 U/L (7-40); Albumin 3.9 g/dL (3.2-4.8); Alkaline Phosphatase 69 U/L (46-116); Anion Gap 9 (5-15); BUN/Creatinine Ratio 19.4 (10.0-20.0); Blood Urea Nitrogen 13 mg/dL (9-23); Calcium 8.8 mg/dL (8.7-10.4); Carbon Dioxide 25 mmol/L (20-31); Chloride 105 mmol/L (98-107); Glucose 98 mg/dL (74-106); Potassium 3.8 mmol/L (3.5-5.1); Sodium 139 mmol/L (136-145); Total Protein 6.6 g/dL (5.7-8.2)
[2025-06-16 06:47] LABS: Bilirubin, Total 0.7 mg/dL (0.2-1.0)
--- NOTE | 2025-06-16 15:14 | DVH ---
Procedure: CT ANGIO HEAD/Neck HISTORY: acute CVA Comparison Study: US CAROTID DUPLX W COLOR DOP on DOS: 06/15/25, MRI BRAIN HEAD WO CONTRAST on DOS: 09/29, CT STROKE CTH on DOS: 06/15/25 Exam Date:06/16/2025 02:23 PM TECHNIQUE: CTA head without and with intravenous contrast. CTA neck with intravenous contrast. 3D mauricio A2B postprocessing was performed and images were used for interpretation and reporting. Radiation Dose : CT Dose: CTDI volume is 25 mGy. Dose-length product is 250 mGy*cm FINDINGS: CTA head: There is normal enhancement of the visualized distal internal carotid, anterior and middle cerebral a rteries. There is a normal anterior communicating artery complex. There are bilateral posterior commu nicating arteries. The vertebral, basilar, cerebellar and posterior cerebral arteries are within norm al limits. The early parenchymal enhancement is grossly unremarkable. The visualized intracranial bryan ous structures are grossly unremarkable. CTA neck: The visualized thoracic aortic arch and proximal great vessels are unremarkable. The left internal and external carotid arteries are within normal limits. The right common, internal and external carot id arteries are within normal limits. The cervical segments of the right and left vertebral arteries are within normal limits. The limited visualized lung apices are clear. The surrounding soft tissues and osseous structures are otherwise unremarkable. 75% stenosis of the left carotid artery due to ulcerated plaque at the carotid bifurcation. IMPRESSION: 75% stenosis of the left carotid artery due to ulcerated plaque at the carotid bifurcation. Remaining intra-arterial cerebral vessels are patent. CAROTID STENOSIS REFERENCE Distal internal carotid artery diameter as the denominator for stenosis measurement: MILD = <50% stenosis. MODERATE = 50-69% stenosis. SEVERE = 70-89% stenosis. CRITICAL = 90-99% stenosis. OCCLUDED = 100% stenosis. All CT scans at this medical facility are performed using dose modulation techniques as appropriate t o a performed exam including the following: Automated exposure control was utilized; adjustment of th e MA and/or KV according to patient size; and use of iterative reconstruction technique.
--- NOTE | 2025-06-16 16:13 | DVHPNRES ---
Progress Note Date Seen: Jun 16, 2025 Resident Creating Document: CHRISSY GAMINO Medical Necessity Reason Pt with a Central, PICC or Fol: No Subjective Review of Systems Patient is a 50-year-old male with no significant past medical history who came in after having numbness and tingling in right upper extremity. According to the patient, on 06/14/2025 around 10:00 p.m. he felt" weird" along with numbness, tingling radiating of right upper extremity and decreased strength which is what prompted this visit to the hospital. Patient denies having similar symptoms in the past. At the time of examination, patient continues to have mild numbness tingling in the right upper extremity. Head CT showed hypodensity with loss of dumont white matter differentiation in the left parietal lobe consistent with acute or subacute infarct. Patient was started on aspirin, atorvastatin, clopidogrel and Neurology was consulted. Past surgical history: Denies Home medications: None Past Hospitalization: Denies Social & Personal history: Patient quit smoking 8 years ago, prior to that was smoking 1 pack of cigarettes per week for 12 years. Currently still uses vape pen unable to quantify. Denies using alcohol. Denies using drugs. Lives at home. Allergies: Denies Patient seen and examined at bedside. Patient is alert and oriented to time, place person and responding to all questions. Eyes: No Pain, No Vision change, No Conjunctivae inflammation, No Eyelid inflammation, No Other, No Redness ENT: No Ear pain, No Ear discharge, No Nose pain, No Nose discharge, No Nose congestion, No Mouth pain, No Mouth swelling, No Throat pain, No Throat swelling, No Other Cardiovascular: No Chest Pain, No Palpitations, No Orthopnea, No Paroxysmal No Dyspnea, No Edema, No Lt Headedness, No Other Respiratory: No Cough, No Dry, No Shortness of breath, No SOB with exertion, No Wheezing, No Hemoptysis, No Pleuritic Pain, No Sputum, No Other Gastrointestinal: No Nausea, No Vomiting, No Abdominal Pain, No Diarrhea, No Constipation, No Melena, No Hematochezia, No Other Genitourinary: No Dysuria, No Frequency, No Incontinence, No Hematuria, No Retention, No Other Musculoskeletal: No other, No neck pain, No shoulder pain, arm numbness and tingling on the right,, No back pain, No hand pain, No leg pain, No foot pain Skin: No Rash, No Lesions, No Jaundice, No Bruising, No Other Objective vital signs Vital Sign Date Time Temp Pulse Resp B/P (MAP) Pulse Ox O2 Delivery O2 Flow Rate FiO2 06/16/25 13:00 98.7 60 17 98/65 (76) 97 98.7 06/16/25 06:22 Room Air* 0 21 medications Current Medications Medications Dose Ordered Sig/Lucy Route Start Time Stop Time Status Last Admin Dose Admin Sodium Chloride 10 ml Q8HR IV 06/15/25 14:00 06/16/25 14:00 10 ML Ondansetron HCl 4 mg Q4HP PRN IV 06/15/25 10:00 Morphine Sulfate 2 mg Q30M PRN IV 06/15/25 10:00 Acetaminophen/ Hydrocodone Bitart 1 tab Q4HP PRN PO 06/15/25 10:00 Docusate Sodium 100 mg BIDPRN PRN PO 06/15/25 10:00 Acetaminophen 650 mg Q6HP PRN PO 06/15/25 10:00 Nitroglycerin 0.4 mg Q5MINP PRN SL 06/15/25 10:00 Atorvastatin Calcium 40 mg HS PO 06/15/25 22:00 06/16/25 00:07 40 MG Clopidogrel Bisulfate 75 mg DAILY PO 06/15/25 10:00 06/16/25 09:01 75 MG Aspirin 81 mg DAILY PO 06/15/25 10:00 06/16/25 09:01 81 MG Examination General Appearance: Cooperative. Well developed. Well nourished. NAD Head Exam: Normal inspection, intact extraocular movements, equal and reactive pupils. Adequate function of muscles of facial expression, muscles of mastication. No tongue deviation noted. Pulmonary/Respiratory: Chest non-tender. Clear bilateral breath sounds, no crackles, no wheezing. Cardiovascular/Chest: Regular rate and rhythm. No murmurs. No JVD. Peripheral Pulses: 2+ Radial (R). 2+ Radial (L). 2+ Pedal (R). 2+ Pedal (L) Abdominal Exam: Normal bowel sounds. Soft. normal abdomen, no visible veins, Nontender. No hepatospenomegaly. No masses Ankle Exam: Negative ankle edema Lower extremities: Negative lower extremity edema Neuro/Mental Status: A&O x4. Coherent. Bilateral lower extremity 5/5 strength. Left upper extremity 5/5, right upper extremity 4/5. Sensations intact. Thoughts/Psych: Normal thought pattern. Appropriate mood and affect. Good judgement and insight Skin Exam: Normal inspection. Normal color. Warm. Dry laboratory and microbiology Laboratory Tests 06/16/25 05:25 Test 06/16/25 05:25 Range/Units Serum Glucose 98 74-106 mg/dL Labs and/or images reviewed: Labs reviewed by me, Image(s) reviewed by me (RN) Problem List/Assessment/Plan Problem List/Assessment/Plan Acute-subacute cerebrovascular accident - head CT: Hypodensity with loss of dumont might matter differentiation in the left parietal lobe consistent with acute or subacute infarct. - brain MRI: Acute infarcts seen in left parietal lobe similar to prior CT scan of the head, additional smaller acute cortical infarcts in the left occipital and left frontal lobe. - carotid Doppler: No hemodynamically significant stenosis noted in the right and left carotid system - CT angiography head and neck: 75% stenosis of the left carotid artery due to ulcerated plaque at the carotid bifurcation, remaining intra-arterial cerebral vessels are patent. - aspirin 81 mg - clopidogrel 75 mg - atorvastatin 40 mg - neurology consulted - PT evaluation requested Hyperlipidemia - atorvastatin 40 mg - counseled extensively about dietary and lifestyle modification Nicotine dependent - counseled in detail about injurious effects of nicotine on overall health and well-being DVT prophylaxis: Levonox 40mg Goals of care: Full code, discussed for >16 minutes on 06/16/2025 Plan discussed with patient Plan discussed with Dr. Yu Plan discussed with: Patient, Other (RN) My Orders My Orders Orders - CHRISSY GAMINO RESIDENT Procedure Category Date Status Time * Cardiology Consult CONS 06/16/25 Transmitted 14:12 Angio Head/Neck CT 06/16/25 Resulted 14:12 Pt Request For Service PT 06/16/25 Logged 14:12 Transfer Orders XFER 06/16/25 Transmitted 14:19 Date of Service: Jun 16, 2025 Billing Provider: ANAY YU MD Common Visit Codes: [id number] INP/OBS CARE(HIGH) Secondary Visit Codes: 91004-[id number] CARE PLAN 30 MINUTES CHRISSY GAMINO Jun 16, 2025 16:13 ANIL ALEXANDRA RESIDENT Jun 16, 2025 16:24 ANAY YU MD Jun 20, 2025 20:49
--- NOTE | 2025-06-16 19:21 | DVHINCON2 ---
Date of service: Jun 16, [address] Greco Reason for Consultation Right arm weakness for 2 hours History of Present Illness Mr. Pulido is a 50 years old right-handed gentleman with a history of obstructive sleep apnea, he came to the [facility] on 06/15/2025 with a chief complaint of right arm paresthesia weakness. At this time, he is alert and fully oriented, he and his girlfriend provided the following history He woke up in morning on 06/15/2025 with mild numbness and weakness in the right arm, labeled his speech was slurry as well, the patient has seen some improvement in the hospital. He has never had similar problems previously He has sleep apnea, he has CPAP pressure was on the low side, but he has stopped using his CPAP machine for two years because of recall CBC, 06/16/2025: Unremarkable CMP, 06/16/2025: Unremarkable TG/HDL/LDL/HDL, 06/15/2025: 184/163/111/31 TSH, 06/15/2025: 0.98 CT head, 06/15/2025: Hypodensity with loss of dumont-white matter differentiation in the left parietal lobe consistent with acute or subacute infarct. No acute intracranial hemorrhage or midline shift CTA head, neck, 06/16/2025: 75% stenosis of the left carotid artery due to ulcerated plaque at the carotid bifurcation. MRI head, 06/15/2025: Acute infarct seen in the left parietal lobe similar to prior CT scan of the head performed same date and communicated to the ordering clinician at the time of the CT interpretation. Additional smaller acute cortical infarcts in the left occipital and left frontal lobe Past Medical History Sleep apnea Past Surgical History No surgeries Family History: Patient reports no known family medical history. Family History He does not remember major medical problem in the family Social History He E-smokes, no history of drug/alcohol abuse Allergies: Coded Allergies: NO KNOWN ALLERGIES (Unverified , 06/02/25) Current Medications Current Medications Medications (Trade) Dose Ordered Sig/Lucy Route PRN Reason Start Time Stop Time Status Last Admin Atorvastatin Calcium (Lipitor) 40 mg HS PO 06/15/25 22:00 06/15/25 09:54 DC Atorvastatin Calcium (Lipitor) 40 mg HS PO 06/15/25 22:00 06/16/25 00:07 Enoxaparin Sodium (Lovenox) 40 mg DAILY SC 06/17/25 10:00 Review of Systems As above, the other systems are negative Vital Signs Vital Signs Date Time Temp Pulse Resp B/P (MAP) Pulse Ox O2 Delivery O2 Flow Rate FiO2 06/16/25 17:00 98.5 65 18 108/76 (87) 97 98.5 06/16/25 06:22 Room Air* 0 21 Physical Exam GENERAL EXAM: General: the patient is well developed and nourished. No acute distress. HEENT: Normocephalic, neck is supple, no carotid bruits. No mass. RESPIRATORY: Normal respiratory effort with symmetrical lung expansion. Lungs clear to auscultation. CARDIOVASCULAR: Regular rate and rhythm with no murmurs. S1, S2. ABDOMEN: Soft, nontender, normal bowel sound NEUROLOGICAL: MENTAL STATUS: Awake and alert. Oriented to person, place, time and general circumstances. Able to give personal history. SPEECH, LANGUAGE, HIGHER CORTICAL FUNCTION: no aphasia or dysathria. CRANIAL NERVES: #2: Intact visual ferrer to confrontation. The optic discs were sharp. #3,4,6: Pupils are equal, round and reactive. EOMs full and conjugate. #5: Facial sensation intact in all three divisions bilaterally. Mandibular strength intact. #7: Facial muscles symmetrical and strength intact. #8: Hearing grossly normal to voice. #9,10: Uvula and soft palate rise in the midline. Swallow and voice are normal. #11: Trapezius and sternomastoid strength intact bilaterally. #12: Tongue midline. No fasciculations or atrophy. SENSATION: Sensation to touch and pinprick is normal. MOTOR: Normal tone in the upper and lower extremity. Normal muscle bulk. No fasciculations. No abnormal movements or posturing. Muscle strength of the major groups in the extremities is 5/5 except for 4/5 in the right upper extremity. REFLEXES: Deep tendon reflexes normal and symmetrical. No pathological reflexes. CEREBELLAR/COORDINATION: Finger to nose and heel to guzman are normal bilaterally. GAIT/STATION: deferred. Labs/Diagnostic Data Labs Test 06/16/25 05:25 06/15/25 09:28 06/15/25 08:20 Range/Units White Blood Count 9.4 4.4-10.8 10^3/uL Red Blood Count 4.84 4.5-5.90 10^6/uL Hemoglobin 15.1 13.5-17.5 g/dL Hematocrit 43.2 41.0-53.0 % Mean Corpuscular Volume 89.4 80.0-100.0 fL Mean Corpuscular Hemoglobin 31.3 28.0-32.0 pg Mean Corpuscular Hemoglobin Concent 35.0 32.0-36.0 g/dL Red Cell Distribution Width 13.1 11.8-14.3 % Platelet Count 574 H 140-450 10^3/uL Mean Platelet Volume 7.1 6.9-10.8 fL Neutrophils (%) (Auto) 71.3 37.0-80.0 % Lymphocytes (%) (Auto) 19.1 10.0-50.0 % Monocytes (%) (Auto) 6.4 0.0-12.0 % Eosinophils (%) (Auto) 2.2 0.0-7.0 % Basophils (%) (Auto) 1.0 0.0-2.0 % Neutrophils # (Auto) 6.7 1.6-8.6 10 ^3/uL Lymphocytes # (Auto) 1.8 0.4-5.4 10 ^3/uL Monocytes # (Auto) 0.6 0-1.3 10 ^3/uL Eosinophils # (Auto) 0.2 0-0.8 10 ^3/uL Basophils # (Auto) 0.1 0-0.2 10 ^3/uL Nucleated Red Blood Cells 0.0 % Sodium Level 139 136-145 mmol/L Potassium Level 3.8 3.5-5.1 mmol/L Chloride Level 105 98-107 mmol/L Carbon Dioxide Level 25 20-31 mmol/L Anion Gap 9 5-15 Blood Urea Nitrogen 13 9-23 mg/dL Creatinine 0.67 L 0.700-1.30 mg/dL Glomerular Filtration Rate Calc 114 >90 mL/min BUN/Creatinine Ratio 19.4 10.0-20.0 Serum Glucose 98 74-106 mg/dL Calcium Level 8.8 8.7-10.4 mg/dL Total Bilirubin 0.7 0.2-1.0 mg/dL Aspartate Amino Transferase (AST) 16 13-40 U/L Alanine Aminotransferase (ALT) 11 7-40 U/L Alkaline Phosphatase 69 46-116 U/L Total Protein 6.6 5.7-8.2 g/dL Albumin 3.9 3.2-4.8 g/dL Troponin I High Sensitivity 3 L </=54 ng/L Prothrombin Time 11.2 9.3-11.8 sec Prothrombin Time INR 1.06 0.9-1.15 Activated Partial Thromboplast Time 27.6 24.5-34.5 SEC Hemoglobin A1c 5.4 <5.7 % A1C Magnesium Level 2.1 1.6-2.6 mg/dL B-Type Natriuretic Peptide 22.07 0-100 pg/mL Triglycerides Level 184 H < 150 mg/dL Cholesterol Level 163 < 200 mg/dL LDL Cholesterol 111 H < 100 mg/dL HDL Cholesterol 31 L 40-59 mg/dL Thyroid Stimulating Hormone (TSH) 0.98 0.55-4.78 uIU/mL Assessment Acute right upper extremity weakness Left carotid stenosis with ulcerated plaque Acute left parietal infarcts Sleep apnea not on CPAP machine Plan/Recommendation Monitoring Supportive treatment Telemetry JAYLEN Aspirin 81 mg daily Plavix 75 mg daily for 21 days Lipitor 80 mg daily CPAP 7 cmH2O in the hospital Dr. Coker to evaluate Stroke risk factors discussed with them, especially sleep apnea and its management More recommendation per clinical course Plan discussed with: Patient, Spouse, Other CORTEZ CONWAY MD Jun 16, 2025 19:21
[2025-06-17] VITALS (8 sets, daily range): BP systolic 89–113; BP diastolic 47–75; PULSE 55–72; RESP 16–19; TEMP 98.1–98.5; O2SAT 96–98
--- NOTE | 2025-06-17 00:58 | DVHINCON2 ---
Date of service: Jun 16, 2025 Referring Physician Nikko Reason for Consultation JAYLEN History of Present Illness This is a 50 year old male with no prior medical history who presented to the ED with c/o right sided weakness. Patient states, he has been experiencing right sided arm weakness with associated numbness sudden since 0600 06/15 morning. 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 Patient denies blurred vision, slurred speech, or headache. Chest x-ray shows NAD. CT brain shows hypodensity with loss of dumont-white matter differentiation in the left parietal lobe consistent with acute or subacute infarct. No acute intracranial hemorrhage or midline shift. RI brain revealed an acute infarct seen in the left parietal lobe similar to prior CT scan of the head performed same date and communicated to the ordering clinician at the time of the CT interpretation. Additional smaller acute cortical infarcts in the left occipital and left frontal lobe. Carotid Doppler was unremarkable. Patient was admitted to the hospital. I am asked to consult on this patient. Family History: Patient reports no known family medical history. Allergies: Coded Allergies: NO KNOWN ALLERGIES (Unverified , 06/02/25) Home Meds No Active Prescriptions or Reported Meds Current Medications Current Medications Medications (Trade) Dose Ordered Sig/Lucy Route PRN Reason Start Time Stop Time Status Last Admin Enoxaparin Sodium (Lovenox) 40 mg DAILY SC 06/17/25 10:00 Atorvastatin Calcium (Lipitor) 80 mg HS PO 06/16/25 20:00 06/16/25 22:18 Clopidogrel Bisulfate (Plavix) 75 mg DAILY PO 06/17/25 10:00 07/06/25 11:00 Review of Systems Constitutional: No: Fever, Chills, Sweats, Weakness, Malaise, Other Eyes: No: Pain, Vision change, Conjunctivae inflammation, Eyelid inflammation, Other, Redness ENT: No: Ear pain, Ear discharge, Nose pain, Nose discharge, Nose congestion, Mouth pain, Mouth swelling, Throat pain, Throat swelling, Other Respiratory: No: Cough, Dry, Shortness of breath, SOB with excertion, Wheezing, Hemoptysis, Pleuritic Pain, Sputum, Wheezing, Other Cardiovascular: No: Chest Pain, Palpitations, Orthopnea, Paroxysmal Noc. Dyspnea, Edema, Lt Headedness, Other Gastrointestinal: No: Nausea, Vomiting, Abdominal Pain, Diarrhea, Constipation, Melena, Hematochezia, Other Genitourinary: No Dysuria, No Frequency, No Incontinence, No Hematuria, No Retention, No Other Musculoskeletal: No: other, neck pain, shoulder pain, arm pain, back pain, hand pain, leg pain, foot pain Skin: No: Rash, Lesions, Jaundice, Bruising, Other Neurological: Weakness (right hand); No: Numbness, Incoordination, Change in speech, Confusion, Seizures, Other Vital Signs Vital Signs Date Time Temp Pulse Resp B/P (MAP) Pulse Ox O2 Delivery O2 Flow Rate FiO2 06/16/25 23:26 98 Room Air 0.0 06/16/25 23:14 69 18 06/16/25 22:00 98.3 112/76 (88) 98.3 06/16/25 19:38 21 Physical Exam GENERAL: Alert and oriented x 3. No acute distress. EYES: PERRL, EOMI. Anicteric. HENT: Moist mucous membranes. LUNGS: Clear to auscultation bilaterally. CARDIOVASCULAR: Regular rate and rhythm. ABDOMEN: Soft, non-tender and non-distended. EXTREMITIES: No edema. NEUROLOGIC: Right sided weakness. SKIN: Warm, dry. Labs/Diagnostic Data Labs Test 06/16/25 05:25 06/15/25 09:28 06/15/25 08:20 Range/Units White Blood Count 9.4 4.4-10.8 10^3/uL Red Blood Count 4.84 4.5-5.90 10^6/uL Hemoglobin 15.1 13.5-17.5 g/dL Hematocrit 43.2 41.0-53.0 % Mean Corpuscular Volume 89.4 80.0-100.0 fL Mean Corpuscular Hemoglobin 31.3 28.0-32.0 pg Mean Corpuscular Hemoglobin Concent 35.0 32.0-36.0 g/dL Red Cell Distribution Width 13.1 11.8-14.3 % Platelet Count 574 H 140-450 10^3/uL Mean Platelet Volume 7.1 6.9-10.8 fL Neutrophils (%) (Auto) 71.3 37.0-80.0 % Lymphocytes (%) (Auto) 19.1 10.0-50.0 % Monocytes (%) (Auto) 6.4 0.0-12.0 % Eosinophils (%) (Auto) 2.2 0.0-7.0 % Basophils (%) (Auto) 1.0 0.0-2.0 % Neutrophils # (Auto) 6.7 1.6-8.6 10 ^3/uL Lymphocytes # (Auto) 1.8 0.4-5.4 10 ^3/uL Monocytes # (Auto) 0.6 0-1.3 10 ^3/uL Eosinophils # (Auto) 0.2 0-0.8 10 ^3/uL Basophils # (Auto) 0.1 0-0.2 10 ^3/uL Nucleated Red Blood Cells 0.0 % Sodium Level 139 136-145 mmol/L Potassium Level 3.8 3.5-5.1 mmol/L Chloride Level 105 98-107 mmol/L Carbon Dioxide Level 25 20-31 mmol/L Anion Gap 9 5-15 Blood Urea Nitrogen 13 9-23 mg/dL Creatinine 0.67 L 0.700-1.30 mg/dL Glomerular Filtration Rate Calc 114 >90 mL/min BUN/Creatinine Ratio 19.4 10.0-20.0 Serum Glucose 98 74-106 mg/dL Calcium Level 8.8 8.7-10.4 mg/dL Total Bilirubin 0.7 0.2-1.0 mg/dL Aspartate Amino Transferase (AST) 16 13-40 U/L Alanine Aminotransferase (ALT) 11 7-40 U/L Alkaline Phosphatase 69 46-116 U/L Total Protein 6.6 5.7-8.2 g/dL Albumin 3.9 3.2-4.8 g/dL Troponin I High Sensitivity 3 L </=54 ng/L Prothrombin Time 11.2 9.3-11.8 sec Prothrombin Time INR 1.06 0.9-1.15 Activated Partial Thromboplast Time 27.6 24.5-34.5 SEC Hemoglobin A1c 5.4 <5.7 % A1C Magnesium Level 2.1 1.6-2.6 mg/dL B-Type Natriuretic Peptide 22.07 0-100 pg/mL Triglycerides Level 184 H < 150 mg/dL Cholesterol Level 163 < 200 mg/dL LDL Cholesterol 111 H < 100 mg/dL HDL Cholesterol 31 L 40-59 mg/dL Thyroid Stimulating Hormone (TSH) 0.98 0.55-4.78 uIU/mL Assessment Acute-subacute cerebrovascular accident. Hyperlipidemia. Nicotine dependent. Plan/Recommendation I agree with your ongoing assessment and care of plan. JAYLEN. Morphine and [place] for pain management. Aspirin, Lipitor, Plavix. DVT prophylactics. Nitro SL. Additional plan as per the hospital course. A total of 45 minutes was spent reviewing the patient record, examining the patient, making a diagnostic and therapeutic plan, discussing this plan with medical personnel, following up on diagnostic studies and following the patient for clinical stability excluding any and all procedures. At least 50% of this time was spent in direct, [id number] contact. Plan discussed with: Patient SANCHEZ SHANNON MD Jun 17, 2025 00:58
[2025-06-17 07:13] LABS: Anion Gap 8 (5-15); Carbon Dioxide 27 mmol/L (20-31); Chloride 104 mmol/L (98-107); Potassium 4.1 mmol/L (3.5-5.1); Sodium 139 mmol/L (136-145)
[2025-06-17 07:14] LABS: Calcium 9.0 mg/dL (8.7-10.4)
[2025-06-17 07:19] LABS: BUN/Creatinine Ratio 16.0 (10.0-20.0); Blood Urea Nitrogen 13 mg/dL (9-23); Glucose 97 mg/dL (74-106); Mean Corpuscular Hemoglobin 30.7 pg (28.0-32.0)
[2025-06-17 07:22] LABS: Hematocrit 44.0 % (41.0-53.0); Hemoglobin 15.1 g/dL (13.5-17.5); Mean Corpuscular Volume 89.6 fL (80.0-100.0); Nucleated Red Blood Cells % 0.1 %
[2025-06-17] MEDS: IOHEXOL 350 MG/ML 100ML IJ ONE (08:17)
[2025-06-17] MEDS: CLOPIDOGREL BISULFATE 75 MG TAB PO SCH (09:28)
[2025-06-17] MEDS: ENOXAPARIN SOD 40 MG/0.4 ML SYRINGE SC SCH (09:29)
--- NOTE | 2025-06-17 16:15 | DVHPNRES ---
Progress Note Date Seen: Jun 17, 2025 Resident Creating Document: CHRISSY GAMINO Medical Necessity Reason Pt with a Central, PICC or Fol: No Subjective Review of Systems Patient is a 50-year-old male with past medical history of obstructive sleep apnea who came in after having numbness and tingling in right upper extremity. According to the patient, on 06/14/2025 around 10:00 p.m. he felt "weird" along with numbness, tingling radiating of right upper extremity and decreased strength which is what prompted this visit to the hospital. Patient denies having similar symptoms in the past. At the time of examination, patient continues to have mild numbness tingling in the right upper extremity. Head CT showed hypodensity with loss of dumont white matter differentiation in the left parietal lobe consistent with acute or subacute infarct. Brain MRI shows Acute infarct seen in the left parietal lobe similar to prior CT scan of the head performed same date and communicated to the ordering clinician at the time of the CT interpretation. Additional smaller acute cortical infarcts in the left occipital and left frontal lobe. Patient was started on aspirin, atorvastatin, clopidogrel. CT angiogram Head/Neck shows 75% stenosis of the left carotid artery due to ulcerated plaque at the carotid bifurcation. Neurology was consulted. Patient is scheduled at tomorrow for JAYLEN. Objective vital signs Vital Sign Date Time Temp Pulse Resp B/P (MAP) Pulse Ox O2 Delivery O2 Flow Rate FiO2 06/17/25 13:00 98.2 64 19 95/51 (66) 96 98.2 06/17/25 08:00 Room Air* 0 21 Total Intake and Output 06/16/25 06/16/25 06/17/25 15:00 23:00 07:00 Intake Total 480 ml 240 ml Balance 480 ml 240 ml medications Current Medications Medications Dose Ordered Sig/Lucy Route Start Time Stop Time Status Last Admin Dose Admin Sodium Chloride 10 ml Q8HR IV 06/15/25 14:00 06/17/25 05:42 10 ML Ondansetron HCl 4 mg Q4HP PRN IV 06/15/25 10:00 Morphine Sulfate 2 mg Q30M PRN IV 06/15/25 10:00 Acetaminophen/ Hydrocodone Bitart 1 tab Q4HP PRN PO 06/15/25 10:00 Docusate Sodium 100 mg BIDPRN PRN PO 06/15/25 10:00 Acetaminophen 650 mg Q6HP PRN PO 06/15/25 10:00 Nitroglycerin 0.4 mg Q5MINP PRN SL 06/15/25 10:00 Aspirin 81 mg DAILY PO 06/15/25 10:00 06/17/25 09:27 81 MG Enoxaparin Sodium 40 mg DAILY SC 06/17/25 10:00 06/17/25 09:29 40 MG Atorvastatin Calcium 80 mg HS PO 06/16/25 20:00 06/16/25 22:18 80 MG Clopidogrel Bisulfate 75 mg DAILY PO 06/17/25 10:00 07/06/25 11:00 06/17/25 09:28 75 MG Examination General Appearance: Cooperative. Well developed. Well nourished. NAD Head Exam: Normal inspection, intact extraocular movements, equal and reactive pupils. Adequate function of muscles of facial expression, muscles of mastication. No tongue deviation noted. Pulmonary/Respiratory: Chest non-tender. Clear bilateral breath sounds, no crackles, no wheezing. Cardiovascular/Chest: Regular rate and rhythm. No murmurs. No JVD. Peripheral Pulses: 2+ Radial (R). 2+ Radial (L). 2+ Pedal (R). 2+ Pedal (L) Abdominal Exam: Normal bowel sounds. Soft. normal abdomen, no visible veins, Nontender. No hepatospenomegaly. No masses Ankle Exam: Negative ankle edema Lower extremities: Negative lower extremity edema. Acute right upper extremity weakness Neuro/Mental Status: A&O x4. Coherent. Bilateral lower extremity 5/5 strength. Left upper extremity 5/5, right upper extremity 4/5. Sensations intact. Thoughts/Psych: Normal thought pattern. Appropriate mood and affect. Good judgement and insight Skin Exam: Normal inspection. Normal color. Warm. Dry laboratory and microbiology Laboratory Tests 06/17/25 06:33 Test 06/17/25 06:33 Range/Units Serum Glucose 97 74-106 mg/dL Labs and/or images reviewed: Labs reviewed by me, Image(s) reviewed by me Problem List/Assessment/Plan Problem List/Assessment/Plan # Acute-subacute cerebrovascular accident - head CT: Hypodensity with loss of dumont might matter differentiation in the left parietal lobe consistent with acute or subacute infarct. - brain MRI: Acute infarcts seen in left parietal lobe similar to prior CT scan of the head, additional smaller acute cortical infarcts in the left occipital and left frontal lobe. - carotid Doppler: No hemodynamically significant stenosis noted in the right and left carotid system - CT angiography head and neck: 75% stenosis of the left carotid artery due to ulcerated plaque at the carotid bifurcation, remaining intra-arterial cerebral vessels are patent. - JAYLEN - aspirin 81 mg - clopidogrel 75 mg - atorvastatin 40 mg - neurology consulted - PT evaluation requested # Hyperlipidemia - atorvastatin 40 mg - counseled extensively about dietary and lifestyle modification # Nicotine dependent - counseled in detail about injurious effects of nicotine on overall health and well-being DVT prophylaxis: Levonox 40mg Goals of care: Full code, discussed for >16 minutes on 06/17/2025 Plan discussed with patient Plan discussed with Dr. Yu Plan discussed with: Patient, Other My Orders My Orders Orders - CHRISSY GAMINO RESIDENT Procedure Category Date Status Time Consult CONS 06/17/25 Transmitted Vascular/Endovascular 11:28 Date of Service: Jun 17, 2025 Billing Provider: ANAY YU MD Common Visit Codes: [id number] INP/OBS CARE(HIGH) CHRISSY GAMINO Jun 17, 2025 16:15 ANAY YU MD Jun 20, 2025 20:49
--- NOTE | 2025-06-17 21:11 | DVHPN2 ---
Progress Note - Dictate Date Seen: Jun 17, 2025 Medical Necessity Reason Pt with a Central, PICC or Fol: No Subjective Mr. Pulido is a 50 years old right-handed gentleman with a history of o bstructive sleep apnea, he came to the [facility] on 06/15/2025 with a chief complaint of right arm paresthesia weakness. I have seen and examined the patient, I have talked to his nurse, he is doing fine, he reports recovery, but on physical examination, he still has mild right- sided weakness He refused CPAP in the evening on 06/16/2025 Dr. Gilbert's input appreciated CBC, 06/16/2025: Unremarkable CMP, 06/16/2025: Unremarkable TG/HDL/LDL/HDL, 06/15/2025: 184/163/111/31 TSH, 06/15/2025: 0.98 CT head, 06/15/2025: Hypodensity with loss of duomnt-white matter differentiation in the left parietal lobe consistent with acute or subacute infarct. No acute intracranial hemorrhage or midline shift CTA head, neck, 06/16/2025: 75% stenosis of the left carotid artery due to ulcerated plaque at the carotid bifurcation. MRI head, 06/15/2025: Acute infarct seen in the left parietal lobe similar to prior CT scan of the head performed same date and communicated to the ordering clinician at the time of the CT interpretation. Additional smaller acute cortical infarcts in the left occipital and left frontal lobe vital signs Vital Sign Date Time Temp Pulse Resp B/P (MAP) Pulse Ox O2 Delivery O2 Flow Rate FiO2 06/17/25 16:58 98.1 63 19 109/64 (79) 98 98.1 06/17/25 08:00 Room Air* 0 21 Total Intake and Output 06/16/25 06/16/25 06/17/25 15:00 23:00 07:00 Intake Total 480 ml 240 ml Balance 480 ml 240 ml medications Current Medications Medications Dose Ordered Sig/Lucy Route Start Time Stop Time Status Last Admin Dose Admin Sodium Chloride 10 ml Q8HR IV 06/15/25 14:00 06/17/25 14:00 10 ML Ondansetron HCl 4 mg Q4HP PRN IV 06/15/25 10:00 Morphine Sulfate 2 mg Q30M PRN IV 06/15/25 10:00 Acetaminophen/ Hydrocodone Bitart 1 tab Q4HP PRN PO 06/15/25 10:00 Docusate Sodium 100 mg BIDPRN PRN PO 06/15/25 10:00 Acetaminophen 650 mg Q6HP PRN PO 06/15/25 10:00 Nitroglycerin 0.4 mg Q5MINP PRN SL 06/15/25 10:00 Aspirin 81 mg DAILY PO 06/15/25 10:00 06/17/25 09:27 81 MG Enoxaparin Sodium 40 mg DAILY SC 06/17/25 10:00 06/17/25 09:29 40 MG Atorvastatin Calcium 80 mg HS PO 06/16/25 20:00 06/16/25 22:18 80 MG Clopidogrel Bisulfate 75 mg DAILY PO 06/17/25 10:00 07/06/25 11:00 06/17/25 09:28 75 MG objective General: the patient is well developed and nourished. No acute distress. MENTAL STATUS: Awake and alert. Oriented to person, place, time and general circumstances. Able to give personal history. SPEECH, LANGUAGE, HIGHER CORTICAL FUNCTION: no aphasia or dysathria. CRANIAL NERVES: Pupils are equal, round and reactive. EOMs full and conjugate. Facial sensation intact in all three divisions bilaterally. Mandibular strength intact. Facial muscles symmetrical and strength intact. SENSATION: Sensation to touch and pinprick is normal. MOTOR: Normal tone in the upper and lower extremity. Normal muscle bulk. No fasciculations. No abnormal movements or posturing. Muscle strength of the major groups in the extremities is 5/5 except for 4/5 in the right upper extremity. REFLEXES: Deep tendon reflexes normal and symmetrical. No pathological reflexes. CEREBELLAR/COORDINATION: Finger to nose and heel to guzman are normal bilaterally. GAIT/STATION: deferred. laboratory and microbiology Laboratory Tests 06/17/25 06:33 Test 06/17/25 06:33 Range/Units Serum Glucose 97 74-106 mg/dL Problem List Acute right upper extremity weakness Left carotid stenosis with ulcerated plaque Acute left parietal infarcts Sleep apnea not on CPAP machine Assessment/Plan Monitoring Supportive treatment Telemetry JAYLEN Aspirin 81 mg daily Plavix 75 mg daily for 21 days Lipitor 80 mg daily CPAP 7 cmH2O in the hospital Dr. Coker to evaluate Stroke risk factors discussed with them, especially sleep apnea and its management More recommendation per clinical course This medical document was created using an electronic medical record system with Dragon computerized dictation system. Although this document has been carefully reviewed, there may still be some phonetic and typographical errors. These areas are purely typographical due to imperfections of the software programs, and do not reflect any compromise in the patient's medical care. Prognosis Poor Plan discussed with: Patient, Other CORTEZ CONWAY MD Jun 17, 2025 21:11
--- NOTE | 2025-06-17 23:45 | DVHPN2 ---
Progress Note - Dictate Date Seen: Jun 17, 2025 Medical Necessity Reason Pt with a Central, PICC or Fol: No Subjective Patient was seen and evaluated in follow up. No overnight events. Patient is scheduled for JAYLEN tomorrow. CBC and CMP are unremarkable. Telemetry reviewed. vital signs Vital Sign Date Time Temp Pulse Resp B/P (MAP) Pulse Ox O2 Delivery O2 Flow Rate FiO2 06/17/25 13:00 98.2 64 19 95/51 (66) 96 98.2 06/17/25 08:00 Room Air* 0 21 Total Intake and Output 06/16/25 06/16/25 06/17/25 15:00 23:00 07:00 Intake Total 480 ml 240 ml Balance 480 ml 240 ml medications Current Medications Medications Dose Ordered Sig/Lucy Route Start Time Stop Time Status Last Admin Dose Admin Sodium Chloride 10 ml Q8HR IV 06/15/25 14:00 06/17/25 05:42 10 ML Ondansetron HCl 4 mg Q4HP PRN IV 06/15/25 10:00 Morphine Sulfate 2 mg Q30M PRN IV 06/15/25 10:00 Acetaminophen/ Hydrocodone Bitart 1 tab Q4HP PRN PO 06/15/25 10:00 Docusate Sodium 100 mg BIDPRN PRN PO 06/15/25 10:00 Acetaminophen 650 mg Q6HP PRN PO 06/15/25 10:00 Nitroglycerin 0.4 mg Q5MINP PRN SL 06/15/25 10:00 Aspirin 81 mg DAILY PO 06/15/25 10:00 06/17/25 09:27 81 MG Enoxaparin Sodium 40 mg DAILY SC 06/17/25 10:00 06/17/25 09:29 40 MG Atorvastatin Calcium 80 mg HS PO 06/16/25 20:00 06/16/25 22:18 80 MG Clopidogrel Bisulfate 75 mg DAILY PO 06/17/25 10:00 07/06/25 11:00 06/17/25 09:28 75 MG objective GENERAL: Alert and oriented x 3. No acute distress. EYES: PERRL, EOMI. Anicteric. HENT: Moist mucous membranes. LUNGS: Clear to auscultation bilaterally. CARDIOVASCULAR: Regular rate and rhythm. ABDOMEN: Soft, non-tender and non-distended. EXTREMITIES: No edema. NEUROLOGIC: Right sided weakness. SKIN: Warm, dry. laboratory and microbiology Laboratory Tests 06/17/25 06:33 Test 06/17/25 06:33 Range/Units Serum Glucose 97 74-106 mg/dL Problem List Acute-subacute cerebrovascular accident. Hyperlipidemia. Nicotine dependent. Assessment/Plan Continued all current supportive medical care. JAYLEN. Morphine and [place] for pain management. Aspirin, Lipitor, Plavix. DVT prophylactics. Nitro SL. Additional plan as per the hospital course. Plan discussed with: Patient SANCHEZ SHANNON MD Jun 17, 2025 14:47
[2025-06-18] VITALS (13 sets, daily range): BP systolic 98–112; BP diastolic 63–77; PULSE 59–84; RESP 12–20; TEMP 97.9–98.2; O2SAT 96–98
--- NOTE | 2025-06-18 07:28 | DVHCONRES ---
Date Seen: Jun 18, 2025 Resident Creating Document: MADAI NY Jr., MD Referring Physician you Reason for Consultation ica stenosis History of Present Illness 10-year-old male with no significant past medical history who came in after having numbness and tingling in right upper extremity. According to the patient, on 06/14/2025 around 10:00 p.m. he felt" weird" along with numbness, tingling radiating of right upper extremity and decreased strength which is what prompted this visit to the hospital. Patient denies having similar symptoms in the past. At the time of examination, patient continues to have mild numbness tingling in the right upper extremity. Head CT showed hypodensity with loss of dumont white matter differentiation in the left parietal lobe consistent with acute or subacute infarct. Patient was started on aspirin, atorvastatin, clopidogrel Past Medical History cva Past Surgical History none Family History: Patient reports no known family medical history. Social History former smoker Allergies: Coded Allergies: NO KNOWN ALLERGIES (Unverified , 06/02/25) Home Meds No Active Prescriptions or Reported Meds Current Medications Current Medications Medications (Trade) Dose Ordered Sig/Lucy Route PRN Reason Start Time Stop Time Status Last Admin Enoxaparin Sodium (Lovenox) 40 mg DAILY SC 06/17/25 10:00 06/17/25 09:29 Clopidogrel Bisulfate (Plavix) 75 mg DAILY PO 06/17/25 10:00 07/06/25 11:00 06/17/25 09:28 Vital Signs Vital Signs Date Time Temp Pulse Resp B/P (MAP) Pulse Ox O2 Delivery O2 Flow Rate FiO2 06/18/25 06:29 96 Room Air 0.0 06/18/25 05:00 98.2 68 20 110/76 (87) 98.2 06/17/25 20:00 21 Labs/Diagnostic Data ` Labs Test 06/18/25 07:02 06/17/25 06:33 06/16/25 05:25 06/15/25 09:28 Range/Units Eosinophils (%) (Auto) 3.4 0.0-7.0 % Eosinophils # (Auto) 0.3 0-0.8 10 ^3/uL Basophils # (Auto) 0.1 0-0.2 10 ^3/uL Nucleated Red Blood Cells 0.1 % Total Bilirubin 0.7 0.2-1.0 mg/dL Aspartate Amino Transferase (AST) 16 13-40 U/L Alanine Aminotransferase (ALT) 11 7-40 U/L Alkaline Phosphatase 69 46-116 U/L Total Protein 6.6 5.7-8.2 g/dL Albumin 3.9 3.2-4.8 g/dL Troponin I High Sensitivity 3 L </=54 ng/L Test 06/15/25 08:20 Range/Units Prothrombin Time 11.2 9.3-11.8 sec Prothrombin Time INR 1.06 0.9-1.15 Activated Partial Thromboplast Time 27.6 24.5-34.5 SEC Hemoglobin A1c 5.4 <5.7 % A1C Magnesium Level 2.1 1.6-2.6 mg/dL B-Type Natriuretic Peptide 22.07 0-100 pg/mL Triglycerides Level 184 H < 150 mg/dL Cholesterol Level 163 < 200 mg/dL LDL Cholesterol 111 H < 100 mg/dL HDL Cholesterol 31 L 40-59 mg/dL Thyroid Stimulating Hormone (TSH) 0.98 0.55-4.78 uIU/mL CT ANGIO HEAD/Neck HISTORY: acute CVA Comparison Study: US CAROTID DUPLX W COLOR DOP on DOS: 06/15/25, MRI BRAIN HEAD WO CONTRAST on DOS: 06/15/25, CT STROKE CTH on DOS: 06/15/25 Exam Date:06/16/2025 02:23 PM TECHNIQUE: CTA head without and with intravenous contrast. CTA neck with intravenous contrast. 3D image postprocessing was performed and images were used for interpretation and reporting. Radiation Dose : CT Dose: CTDI volume is 25 mGy. Dose-length product is 250 mGy*cm FINDINGS: CTA head: There is normal enhancement of the visualized distal internal carotid, anterior and middle cerebral arteries. There is a normal anterior communicating artery complex. There are bilateral posterior communicating arteries. The vertebral, basilar, cerebellar and posterior cerebral arteries are within normal limits. The early parenchymal enhancement is grossly unremarkable. The visualized intracranial venous structures are grossly unremarkable. CTA neck: The visualized thoracic aortic arch and proximal great vessels are unremarkable. The left internal and external carotid arteries are within normal limits. The right common, internal and external carotid arteries are within normal limits. The cervical segments of the right and left vertebral arteries are within normal limits. The limited visualized lung apices are clear. The surrounding soft tissues and osseous structures are otherwise unremarkable. 75% stenosis of the left carotid artery due to ulcerated plaque at the carotid bifurcation. IMPRESSION: 75% stenosis of the left carotid artery due to ulcerated plaque at the carotid bifurcation. Remaining intra-arterial cerebral vessels are patent. Assessment symptomatic left ica stenosis antiplt. therapy JAYLEN once neurological symptoms resolve or plateau may require left CEA MADAI NY Jr., MD Jun 18, 2025 07:28
[2025-06-18 07:41] LABS: Hematocrit 47.1 % (41.0-53.0); Hemoglobin 16.2 g/dL (13.5-17.5); Mean Corpuscular Hemoglobin 30.6 pg (28.0-32.0); Mean Corpuscular Volume 89.0 fL (80.0-100.0); Nucleated Red Blood Cells % 0.1 %
[2025-06-18 07:51] LABS: Chloride 103 mmol/L (98-107); Potassium 4.0 mmol/L (3.5-5.1); Sodium 139 mmol/L (136-145)
[2025-06-18 07:52] LABS: Anion Gap 10 (5-15); Calcium 9.1 mg/dL (8.7-10.4); Carbon Dioxide 26 mmol/L (20-31)
[2025-06-18 07:57] LABS: BUN/Creatinine Ratio 16.7 (10.0-20.0); Blood Urea Nitrogen 13 mg/dL (9-23); Glucose 90 mg/dL (74-106)
--- NOTE | 2025-06-18 12:57 | ECG ---
[facility] [place]: [place]25-06-15 Test Time: 08:13:18 Pat Name: KARLA ROGEL Department: [facility] ED Patient ID: [id number] Room: 0293T A Gender: M Repairer Veneer Sheet: DR KUMARI: 1975 Requested By: CORBIN LU Order Number: [id number] Reading MD: Suresh Merida Measurements Intervals [place] Rate: 85 P: 46 ND: 134 QRS: 91 QRSD: 89 T: 62 QT: 357 QTc: 425 Interpretive Statements Sinus rhythm Borderline right axis deviation ST elev, probable normal early repol pattern Electronically Signed On 06-22-2025 22:21:06 PDT by Suresh Merida Please click the below link to view image of tracing.
[2025-06-18] MEDS: MIDAZOLAM HCL 2MG/2ML 2ml VIAL (1mg/ml) IV ONE (14:19)
[2025-06-18] MEDS: LIDOCAINE VISCOUS 2% 15ML UD MT ONE (14:19)
[2025-06-18] MEDS: fentaNYL CITRATE 100 MCG/2 ML VL IV ONE (14:19)
--- NOTE | 2025-06-18 14:25 | DVHOP2 ---
Operative Report Operative Report CARDIAC IT PROGRAMMER ANALYST PROCEDURE REPORT [place], [place] Date of Service: 06/18/25 Scrap Drop Engineer: Kimmie Kern MD PROCEDURES PERFORMED: trans esophageal echocardiogram, conscious sedation <15 mins, doppler assesment complete JAYLEN, PREOPERATIVE DIAGNOSES: cva POSTOP DIAGNOSIS: NON cardioembolic cva DESCRIPTION OF PROCEDURE: The patient or appropriate family signed informed consent understanding the risks, benefits and alternatives of the procedure, they wished to proceed. The patient was brought to the cardiac corn lab technician in n.p.o. state. the patient was given 15 ml of oral viscous lidocaine. the patient was placed in a left lateral decubitus position with bite block in mouth. NExt conscious sedation was administered per corn lab technician protocol with __1 mg of versed and ___50 mcg of fentanyl. Next a JAYLEN probe was advanced to the mid esophagus with ease and multiple planar images obtained. At the completion of the procedure , probe was removed and there were no immediate complications. FINDINGS: Left Ventricle: Normal LV size and function, LVEF estimated at 60% Right Ventricle: NOrmal RV size and function Left atrium: normal size Right atrium normal RA Left atrial appendage: no thrombus noted, Aortic valve: trileaflet valve, no severe or AI Mitral Valve: structurally normal, trace mitral regurg, no MS Tricuspid Valve: trace to mild tricuspid regurgitaiton, no TS Pulmonic Valve: structurally normal, no severe PIor PS Interatrial septum: negative color flow for R to L shunt, negative bubble study for shunting Ascending aorta: no severe plaquing KIMMIE KERN MD Jun 18, 2025 14:25
--- NOTE | 2025-06-18 14:25 | DVHPN2 ---
Progress Note Date Seen: Jun 18, 2025 Medical Necessity Reason Pt with a Central, PICC or Fol: No Subjective Patient reports: Feels better Objective vital signs Vital Sign Date Time Temp Pulse Resp B/P (MAP) Pulse Ox O2 Delivery O2 Flow Rate FiO2 06/18/25 13:00 98.2 72 17 103/63 (76) 97 98.2 06/18/25 08:00 Room Air* 0 21 Total Intake and Output 06/17/25 06/17/25 06/18/25 15:00 23:00 07:00 Intake Total 300 ml 600 ml Balance 300 ml 600 ml medications Current Medications Medications Dose Ordered Sig/Lucy Route Start Time Stop Time Status Last Admin Dose Admin Sodium Chloride 10 ml Q8HR IV 06/15/25 14:00 06/18/25 05:30 10 ML Ondansetron HCl 4 mg Q4HP PRN IV 06/15/25 10:00 Morphine Sulfate 2 mg Q30M PRN IV 06/15/25 10:00 Acetaminophen/ Hydrocodone Bitart 1 tab Q4HP PRN PO 06/15/25 10:00 Docusate Sodium 100 mg BIDPRN PRN PO 06/15/25 10:00 Acetaminophen 650 mg Q6HP PRN PO 06/15/25 10:00 Nitroglycerin 0.4 mg Q5MINP PRN SL 06/15/25 10:00 Aspirin 81 mg DAILY PO 06/15/25 10:00 06/17/25 09:27 81 MG Enoxaparin Sodium 40 mg DAILY SC 06/17/25 10:00 06/17/25 09:29 40 MG Atorvastatin Calcium 80 mg HS PO 06/16/25 20:00 06/17/25 22:24 80 MG Clopidogrel Bisulfate 75 mg DAILY PO 06/17/25 10:00 07/06/25 11:00 06/17/25 09:28 75 MG Examination: GENERAL:Abnormal, HEENT:Abnormal, LUNGS:Abnormal, CVS:Abnormal, MSK:Normal laboratory and microbiology Laboratory Tests 06/18/25 07:02 Test 06/18/25 07:02 Range/Units Serum Glucose 90 74-106 mg/dL Problem List/Assessment/Plan Problem List/Assessment/Plan cva htn carotid stenosis HL s/p ashish no cardiomebolic source of cva cont medical therapy per dr amaris coley will sign off Plan discussed with: Patient My Orders My Orders Orders - KIMMIE KERN MD Procedure Category Date Status Time Fentanyl Citrate PHA 06/18/25 In Process Injection 13:00 Date of Service: Jun 18, 2025 Billing Provider: KIMMIE KERN MD Common Visit Codes: NOT BILLABLE KIMMIE KERN MD Jun 18, 2025 14:25
--- NOTE | 2025-06-18 18:04 | DVHDSRES ---
Discharge Summary Date of Admission Resident Creating Document: MADAI NY Jr., MD Jun 15, 2025 at 09:36 Date of Discharge: Jun 18, 2025 Labs/Diagnostic Data: Laboratory Results Test 06/18/25 07:02 06/16/25 05:25 06/15/25 09:28 06/15/25 08:20 White Blood Count 7.3 10^3/uL (4.4-10.8) Red Blood Count 5.29 10^6/uL (4.5-5.90) Hemoglobin 16.2 g/dL (13.5-17.5) Hematocrit 47.1 % (41.0-53.0) Mean Corpuscular Volume 89.0 fL (80.0-100.0) Mean Corpuscular Hemoglobin 30.6 pg (28.0-32.0) Mean Corpuscular Hemoglobin Concent 34.3 g/dL (32.0-36.0) Red Cell Distribution Width 13.1 % (11.8-14.3) Platelet Count 659 10^3/uL (140-450) Mean Platelet Volume 7.3 fL (6.9-10.8) Neutrophils (%) (Auto) 63.2 % (37.0-80.0) Lymphocytes (%) (Auto) 25.2 % (10.0-50.0) Monocytes (%) (Auto) 5.9 % (0.0-12.0) Eosinophils (%) (Auto) 4.6 % (0.0-7.0) Basophils (%) (Auto) 1.1 % (0.0-2.0) Neutrophils # (Auto) 4.6 10 ^3/uL (1.6-8.6) Lymphocytes # (Auto) 1.8 10 ^3/uL (0.4-5.4) Monocytes # (Auto) 0.4 10 ^3/uL (0-1.3) Eosinophils # (Auto) 0.3 10 ^3/uL (0-0.8) Basophils # (Auto) 0.1 10 ^3/uL (0-0.2) Nucleated Red Blood Cells 0.1 % Sodium Level 139 mmol/L (136-145) Potassium Level 4.0 mmol/L (3.5-5.1) Chloride Level 103 mmol/L (98-107) Carbon Dioxide Level 26 mmol/L (20-31) Anion Gap 10 (5-15) Blood Urea Nitrogen 13 mg/dL (9-23) Creatinine 0.78 mg/dL (0.700-1.30) Glomerular Filtration Rate Calc 109 mL/min (>90) BUN/Creatinine Ratio 16.7 (10.0-20.0) Serum Glucose 90 mg/dL (74-106) Calcium Level 9.1 mg/dL (8.7-10.4) Total Bilirubin 0.7 mg/dL (0.2-1.0) Aspartate Amino Transferase (AST) 16 U/L (13-40) Alanine Aminotransferase (ALT) 11 U/L (7-40) Alkaline Phosphatase 69 U/L (46-116) Total Protein 6.6 g/dL (5.7-8.2) Albumin 3.9 g/dL (3.2-4.8) Troponin I High Sensitivity 3 ng/L (</=54) Prothrombin Time 11.2 sec (9.3-11.8) Prothrombin Time INR 1.06 (0.9-1.15) Activated Partial Thromboplast Time 27.6 SEC (24.5-34.5) Hemoglobin A1c 5.4 % A1C (<5.7) Magnesium Level 2.1 mg/dL (1.6-2.6) B-Type Natriuretic Peptide 22.07 pg/mL (0-100) Triglycerides Level 184 mg/dL (< 150) Cholesterol Level 163 mg/dL (< 200) LDL Cholesterol 111 mg/dL (< 100) HDL Cholesterol 31 mg/dL (40-59) Thyroid Stimulating Hormone (TSH) 0.98 uIU/mL (0.55-4.78) Other Laboratory Tests 06/18/25 07:02 Brief Hx & Hospital Course: Patient is a 50-year-old male with past medical history of obstructive sleep apnea who came in after having numbness and tingling in right upper extremity. According to the patient, on 06/14/2025 around 10:00 p.m. he felt "weird" along with numbness, tingling radiating of right upper extremity and decreased strength which is what prompted this visit to the hospital. Patient denies having similar symptoms in the past. At the time of examination, patient continues to have mild numbness tingling in the right upper extremity. Head CT showed hypodensity with loss of dumont white matter differentiation in the left parietal lobe consistent with acute or subacute infarct. Brain MRI shows Acute infarct seen in the left parietal lobe similar to prior CT scan of the head performed same date and communicated to the ordering clinician at the time of the CT interpretation. Additional smaller acute cortical infarcts in the left occipital and left frontal lobe. Patient was started on aspirin, atorvastatin, clopidogrel. CT angiogram Head/Neck shows 75% stenosis of the left carotid artery due to ulcerated plaque at the carotid bifurcation. Neurology was consulted. Patient is scheduled for JAYLEN. JAYLEN shows Left Ventricle: Normal LV size and function, LVEF estimated at 60% During hospitalization, patient continues to have mild numbness tingling in the right upper extremity. Head CT showed hypodensity with loss of dumont white matter differentiation in the left parietal lobe consistent with acute or subacute infarct. Patient was monitored on telemetry and provided a CPAP. Stroke risk factor particularly sleep apnea in his management were discussed. Plan included continuation of aspirin 81 mg daily, clopidogrel 75 mg daily for 21 days, sugar study of 880 mg daily. Neurologic current symptoms resolve or plateau, patient may require a left carotid endarterectomy. Follow up with Dr. Ny's clinic was arranged for outpatient management. Operations or Procedures PROCEDURES PERFORMED: trans esophageal echocardiogram, conscious sedation <15 mins, doppler assesment complete JAYLEN, PREOPERATIVE DIAGNOSES: cva POSTOP DIAGNOSIS: NON cardioembolic cva DESCRIPTION OF PROCEDURE: The patient or appropriate family signed informed consent understanding the risks, benefits and alternatives of the procedure, they wished to proceed. The patient was brought to the cardiac clinical lab scientist in n.p.o. state. the patient was given 15 ml of oral viscous lidocaine. the patient was placed in a left lateral decubitus position with bite block in mouth. NExt conscious sedation was administered per clinical lab scientist protocol with __1 mg of versed and ___50 mcg of fentanyl. Next a JAYLEN probe was advanced to the mid esophagus with ease and multiple planar images obtained. At the completion of the procedure , probe was removed and there were no immediate complications. FINDINGS: Left Ventricle: Normal LV size and function, LVEF estimated at 60% Right Ventricle: NOrmal RV size and function Left atrium: normal size Right atrium normal RA Left atrial appendage: no thrombus noted, Aortic valve: trileaflet valve, no severe or AI Mitral Valve: structurally normal, trace mitral regurg, no MS Tricuspid Valve: trace to mild tricuspid regurgitaiton, no TS Pulmonic Valve: structurally normal, no severe PIor PS Interatrial septum: negative color flow for R to L shunt, negative bubble study for shunting PROCEDURE(s): Anghedwendyck - ANGIO HEAD/Neck REASON: acute CVA ORDER NUMBER(s): [id number], ACCESSION NUMBER(s): [id number] Procedure: CT ANGIO HEAD/Neck HISTORY: acute CVA Comparison Study: US CAROTID DUPLX W COLOR DOP on DOS: 06/15/25, MRI BRAIN HEAD WO CONTRAST on DOS: 06/15/25, CT STROKE CTH on DOS: 06/15/25 Exam Date:06/16/2025 02:23 PM TECHNIQUE: CTA head without and with intravenous contrast. CTA neck with intravenous contrast. 3D image postprocessing was performed and images were used for interpretation and reporting. Radiation Dose : CT Dose: CTDI volume is 25 mGy. Dose-length product is 250 mGy*cm FINDINGS: CTA head: There is normal enhancement of the visualized distal internal carotid, anterior and middle cerebral arteries. There is a normal anterior communicating artery complex. There are bilateral posterior communicating arteries. The vertebral, basilar, cerebellar and posterior cerebral arteries are within normal limits. The early parenchymal enhancement is grossly unremarkable. The visualized intracranial venous structures are grossly unremarkable. CTA neck: The visualized thoracic aortic arch and proximal great vessels are unremarkable. The left internal and external carotid arteries are within normal limits. The right common, internal and external carotid arteries are within normal limits. The cervical segments of the right and left vertebral arteries are within normal limits. The limited visualized lung apices are clear. The surrounding soft tissues and osseous structures are otherwise unremarkable. 75% stenosis of the left carotid artery due to ulcerated plaque at the carotid bifurcation. IMPRESSION: 75% stenosis of the left carotid artery due to ulcerated plaque at the carotid bifurcation. Remaining intra-arterial cerebral vessels are patent. CAROTID STENOSIS REFERENCE Distal internal carotid artery diameter as the denominator for stenosis measurement: MILD = <50% stenosis. MODERATE = 50-69% stenosis. SEVERE = 70-89% stenosis. CRITICAL = 90-99% stenosis. OCCLUDED = 100% stenosis. All CT scans at this medical facility are performed using dose modulation techniques as appropriate to a performed exam including the following: Automated exposure control was utilized; adjustment of the MA and/or KV according to patient size; and use of iterative reconstruction technique. PROCEDURE(s): CARCL - CAROTID DUPLX W COLOR DOP REASON: Acute stroke due to ischemia ORDER NUMBER(s): [id number], ACCESSION NUMBER(s): [id number] Carotid Duplex Clinical History: Acute stroke due to ischemia Comparison: CT STROKE CT on DOS: 06/15/25 Technique: Duplex Doppler evaluation of the extracranial carotid and vertebral arteries including color Doppler and spectral/pulsed waveform analysis was performed. Findings: RIGHT SIDE: The peak systolic velocities are 112 cm/s in the CCA, 88 cm/s in the ICA. The ICA/CCA ratio is 0.8. The external carotid artery is patent with peak systolic velocity of 56 cm/s proximally. There is appropriate antegrade flow in the right vertebral artery. LEFT SIDE: The peak systolic velocities are 78 cm/s in the CCA, 74 cm/s in the ICA. The ICA/CCA ratio is 0.9. The external carotid artery is patent with peak systolic velocity of 66 cm/s proximally. There is appropriate antegrade flow in the left vertebral artery. IMPRESSION: No hemodynamically significant stenosis noted in the right carotid system. No hemodynamically significant stenosis noted in the left carotid system. Reference: Radiology 2003; 229:340-346 Normal ICA PSV is <125 cm/sec and no plaque or intimal thickening is visible sonographically additional criteria include ICA/CCA PSV ratio <2.0 and ICA EDV <40 cm/sec <50% ICA stenosis ICA PSV is <125 cm/sec and plaque or intimal thickening is visible sonographically additional criteria include ICA/CCA PSV ratio <2.0 and ICA EDV <40 cm/sec 50-69% ICA stenosis ICA PSV is 125-230 cm/sec and plaque is visible sonographically additional criteria include ICA/CCA PSV ratio of 2.0-4.0 and ICA EDV of 40-100 cm/sec 70% ICA stenosis but less than near occlusion ICA PSV is >230 cm/sec and visible plaque and luminal narrowing are seen at dumont-scale and color Doppler ultrasound (the higher the Doppler parameters lie above the threshold of 230 cm/sec, the greater the likelihood of severe disease) additional criteria include ICA/CCA PSV ratio >4 and ICA EDV >100 cm/sec - PROCEDURE(s): MBHL - BRAIN HEAD WO CONTRAST REASON: Acute stroke due to ischemia ORDER NUMBER(s): [id number], ACCESSION NUMBER(s): [id number] EXAMINATION: MRI BRAIN HEAD WO CONTRAST INDICATION: Acute stroke due to ischemia COMPARISON: CT scan of the head performed earlier same date. TECHNIQUE: Multiplanar, multisequence magnetic resonance imaging of the brain was performed without the use of intravenous contrast. FINDINGS: There is restricted diffusion in the left parietal lobe, confirming the acute infarcts seen on CT scan of the head same date. Additional serpiginous foci of restricted diffusion in the left occipital and left posterior frontal lobe consistent with smaller acute cortical infarcts. No intracranial hemorrhage. No mass effect. There is periventricular/deep white matter T2/FLAIR hyperintensity is nonspecific, but most commonly associated with chronic microvascular disease. The ventricles and sulci are normal in size for age. Clear basal cisterns. Flow voids in the major intracranial vessels are maintained. No abnormality of the orbits. Paranasal sinuses and mastoid air cells are clear. No abnormality of the visualized osseous structures and extracranial soft tissues. IMPRESSION: 1. Acute infarct seen in the left parietal lobe similar to prior CT scan of the head performed same date and communicated to the ordering clinician at the time of the CT interpretation. Additional smaller acute cortical infarcts in the left occipital and left frontal lobe. PROCEDURE(s): CTH - STROKE CTH REASON: right arm weakness 2 hours ORDER NUMBER(s): [id number], ACCESSION NUMBER(s): [id number] ADDENDUM ADDENDUM # 1 Critical result: Positive stroke alert Findings discussed with Dr. Crisostomo on 06/15/2025 at 11:56 a.m. EST, with acknowledged receipt and understanding of the findings. ORIGINAL REPORT EXAM: CT STROKE CTH INDICATION: right arm weakness 2 hours TECHNIQUE: CT of the head without intravenous contrast. Coronal and sagittal reformatted images are submitted. Radiation Dose : 1. Head: CT Dose: CTDI volume is 54.68 mGy. Dose-length product is 1.71 mGy*cm The dose indicators for CT are the volume Computed Tomography (CT) Dose Index (CTDIvol) and the Dose Length Product (DLP), and are measured in units of mGy and mGy-cm, respectively. These indicators are not patient dose, but values generated from the CT scanner acquisition factors. The report includes radiation exposure data for exposures received during this examination. All CT scans at this medical facility are performed using dose modulation techniques as appropriate to a performed exam including the following: Automated exposure control was utilized; adjustment of the MA and/or KV according to patient size; and use of iterative reconstruction technique. COMPARISON: None FINDINGS: There is no evidence of acute intracranial hemorrhage, extra-axial collection, mass effect, midline shift, herniation or hydrocephalus. The ventricles are patent. No hydrocephalus. Basal cisterns are patent. There is hypodensity with loss of dumont-white matter differentiation in the left parietal lobe. The visualized paranasal sinuses and mastoid air cells are clear. No depressed calvarial fracture. The surrounding soft tissues are unremarkable. IMPRESSION: 1. Hypodensity with loss of dumont-white matter differentiation in the left parietal lobe consistent with acute or subacute infarct. No acute intracranial hemorrhage or midline shift. PROCEDURE(s): CXR1 - CHEST XRAY 1 VIEW REASON: right arm weakness ORDER NUMBER(s): [id number], ACCESSION NUMBER(s): [id number] EXAM: XY CHEST XRAY 1 VIEW Indication: right arm weakness Technique: Single frontal view of the chest was obtained Comparison: None FINDINGS: Lines and Tubes: None Lungs: No focal consolidation. Pleura: No effusion. No pneumothorax. Cardiomediastinal contours: Unremarkable Bones: No acute osseous abnormality. IMPRESSION: No acute cardiopulmonary disease. Condition at Discharge: Stable (RN) Final Diagnosis/Problems List # Acute-subacute cerebrovascular accident # Hyperlipidemia # Nicotine dependent Discharge Disposition: Home SNF Discharge Will this Physician continue t: No Discharge Instruct/Medications Diet: Regular Activity: No Restrictions, As Tolerated Follow Up/Referral: Follow up with PCP within 1 week. Follow up with vascular surgeon within 1 week. Medications: continue home medications as per EMR No Active Prescriptions or Reported Meds Discharge Statement: "Patient was advised to return to the ER or call 911 if any headaches, dizziness, shortness of breath, chest pain, abdominal pain, bleeding, fevers, or worsening of medical condition. Patient was counseled about treatment plan, medications, possible side effects, patientverbalized understanding. All questions were answered to the best of my ability. This discharge took greater then 30 minutes in planning, reviewing documentation, counseling the patient, and discussing with other team members." ASSESSMENT ASSESSMENT Assessment # Acute-subacute cerebrovascular accident # Hyperlipidemia # Nicotine dependent CHRISSY GAMINO RESIDENT Jun 18, 2025 18:04
--- NOTE | 2025-06-18 18:48 | DVHPNRES ---
Progress Note Date Seen: Jun 18, 2025 Resident Creating Document: CHRISSY GAMINO Medical Necessity Reason Pt with a Central, PICC or Fol: No Subjective Review of Systems Patient is a 50-year-old male with past medical history of obstructive sleep apnea who came in after having numbness and tingling in right upper extremity. According to the patient, on 06/14/2025 around 10:00 p.m. he felt "weird" along with numbness, tingling radiating of right upper extremity and decreased strength which is what prompted this visit to the hospital. Patient denies having similar symptoms in the past. At the time of examination, patient continues to have mild numbness tingling in the right upper extremity. Head CT showed hypodensity with loss of dumont white matter differentiation in the left parietal lobe consistent with acute or subacute infarct. Brain MRI shows Acute infarct seen in the left parietal lobe similar to prior CT scan of the head performed same date and communicated to the ordering clinician at the time of the CT interpretation. Additional smaller acute cortical infarcts in the left occipital and left frontal lobe. Patient was started on aspirin, atorvastatin, clopidogrel. CT angiogram Head/Neck shows 75% stenosis of the left carotid artery due to ulcerated plaque at the carotid bifurcation. Neurology was consulted. Patient is scheduled at tomorrow for JAYLEN. Today patient continues to have mild numbness tingling in the right upper extremity. Patient was monitored on telemetry and provided a CPAP. Stroke risk factor particularly sleep apnea in his management were discussed. JAYLEN shows Normal LV size and function, LVEF estimated at 60%. Plan included continuation of aspirin 81 mg daily, clopidogrel 75 mg daily for 21 days, sugar study of 880 mg daily. Neurologic current symptoms resolve or plateau, patient may require a left carotid endarterectomy. Follow up with Dr. Terrell's clinic was arranged for outpatient management. Patient is scheduled at tomorrow for carotid angiogram. Objective vital signs Vital Sign Date Time Temp Pulse Resp B/P (MAP) Pulse Ox O2 Delivery O2 Flow Rate FiO2 06/18/25 16:50 97.9 62 16 112/77 (89) 98 97.9 06/18/25 08:00 Room Air* 0 21 Total Intake and Output 06/17/25 06/17/25 06/18/25 15:00 23:00 07:00 Intake Total 300 ml 600 ml Balance 300 ml 600 ml medications Current Medications Medications Dose Ordered Sig/Lucy Route Start Time Stop Time Status Last Admin Dose Admin Sodium Chloride 10 ml Q8HR IV 06/15/25 14:00 06/18/25 05:30 10 ML Ondansetron HCl 4 mg Q4HP PRN IV 06/15/25 10:00 Morphine Sulfate 2 mg Q30M PRN IV 06/15/25 10:00 Acetaminophen/ Hydrocodone Bitart 1 tab Q4HP PRN PO 06/15/25 10:00 Docusate Sodium 100 mg BIDPRN PRN PO 06/15/25 10:00 Acetaminophen 650 mg Q6HP PRN PO 06/15/25 10:00 Nitroglycerin 0.4 mg Q5MINP PRN SL 06/15/25 10:00 Aspirin 81 mg DAILY PO 06/15/25 10:00 06/17/25 09:27 81 MG Enoxaparin Sodium 40 mg DAILY SC 06/17/25 10:00 06/17/25 09:29 40 MG Atorvastatin Calcium 80 mg HS PO 06/16/25 20:00 06/17/25 22:24 80 MG Clopidogrel Bisulfate 75 mg DAILY PO 06/17/25 10:00 07/06/25 11:00 06/17/25 09:28 75 MG Examination General Appearance: Cooperative. Well developed. Well nourished. NAD Head Exam: Normal inspection, intact extraocular movements, equal and reactive pupils. Adequate function of muscles of facial expression, muscles of mastication. No tongue deviation noted. Pulmonary/Respiratory: Chest non-tender. Clear bilateral breath sounds, no crackles, no wheezing. Cardiovascular/Chest: Regular rate and rhythm. No murmurs. No JVD. Peripheral Pulses: 2+ Radial (R). 2+ Radial (L). 2+ Pedal (R). 2+ Pedal (L) Abdominal Exam: Normal bowel sounds. Soft. normal abdomen, no visible veins, Nontender. No hepatospenomegaly. No masses Ankle Exam: Negative ankle edema Lower extremities: Negative lower extremity edema. Acute right upper extremity weakness Neuro/Mental Status: A&O x4. Coherent. Bilateral lower extremity 5/5 strength. Left upper extremity 5/5, right upper extremity 4/5. Sensations intact. Thoughts/Psych: Normal thought pattern. Appropriate mood and affect. Good judgement and insight Skin Exam: Normal inspection. Normal color. Warm. Dry laboratory and microbiology Laboratory Tests 06/18/25 07:02 Test 06/18/25 07:02 Range/Units Serum Glucose 90 74-106 mg/dL Labs and/or images reviewed: Labs reviewed by me, Image(s) reviewed by me Problem List/Assessment/Plan Problem List/Assessment/Plan # Acute-subacute cerebrovascular accident - head CT: Hypodensity with loss of dumont might matter differentiation in the left parietal lobe consistent with acute or subacute infarct. - brain MRI: Acute infarcts seen in left parietal lobe similar to prior CT scan of the head, additional smaller acute cortical infarcts in the left occipital and left frontal lobe. - carotid Doppler: No hemodynamically significant stenosis noted in the right and left carotid system - CT angiography head and neck: 75% stenosis of the left carotid artery due to ulcerated plaque at the carotid bifurcation, remaining intra-arterial cerebral vessels are patent. - JAYLEN- Normal LV size and function, LVEF estimated at 60% - aspirin 81 mg - clopidogrel 75 mg - atorvastatin 40 mg - neurology consulted - PT evaluation requested # Hyperlipidemia - atorvastatin 40 mg - counseled extensively about dietary and lifestyle modification # Nicotine dependent - counseled in detail about injurious effects of nicotine on overall health and well-being DVT prophylaxis: Levonox 40mg Goals of care: Full code, discussed for >16 minutes on 06/18/2025 Plan discussed with patient Plan discussed with Dr. Yu Plan discussed with: Patient, Other My Orders My Orders Orders - CHRISSY GAMINO Procedure Category Date Status Time Urinalysis LAB 06/18/25 Logged 03:28 Discharge DISCHARGE 06/18/25 Verified 18:38 Date of Service: Jun 18, 2025 Billing Provider: ANAY YU MD Common Visit Codes: [id number] INP/OBS CARE(HIGH) CHRISSY GAMINO Jun 18, 2025 18:48 ANAY YU MD Jun 20, 2025 20:50
[2025-06-18 21:20] LABS: Urine Protein, UAD Negative (Negative)
[2025-06-18 21:52] LABS: Amphetamine Screen, Urine Neg (NEGATIVE); Barbiturate Scree,Urine Neg (NEGATIVE); Benzodiazephine Screen, Urine Pos (NEGATIVE); Cannabinoid Screen, Urine Neg (NEGATIVE); Cocaine Screen, Urine Neg (NEGATIVE); Opiate Scree,Urine Neg (NEGATIVE); Phencyclidine Screen, Urine Neg (NEGATIVE)
--- NOTE | 2025-06-18 22:15 | DVHPN2 ---
Progress Note - Dictate Date Seen: Jun 18, 2025 Medical Necessity Reason Pt with a Central, PICC or Fol: No Subjective Mr. Pulido is a 50 years old right-handed gentleman with a history of o bstructive sleep apnea, he came to the [facility] on 06/15/2025 with a chief complaint of right arm paresthesia weakness. I have seen and examined the patient, I have talked to his nurse, he is doing fine, the right-sided weakness is better I have discussed with Dr. Coker Re: ulcerated carotid stenosis CBC, 06/16/2025: Unremarkable CMP, 06/16/2025: Unremarkable TG/HDL/LDL/HDL, 06/15/2025: 184/163/111/31 TSH, 06/15/2025: 0.98 JAYLEN, 06/18/2025: Left Ventricle: Normal LV size and function, LVEF estimated at 60% Right Ventricle: NOrmal RV size and function Left atrium: normal size Right atrium normal RA Left atrial appendage: no thrombus noted, Aortic valve: trileaflet valve, no severe or AI Mitral Valve: structurally normal, trace mitral regurg, no MS Tricuspid Valve: trace to mild tricuspid regurgitaiton, no TS Pulmonic Valve: structurally normal, no severe PIor PS Interatrial septum: negative color flow for R to L shunt, negative bubble study for shunting Ascending aorta: no severe plaquing CT head, 06/15/2025: Hypodensity with loss of dumont-white matter differentiation in the left parietal lobe consistent with acute or subacute infarct. No acute intracranial hemorrhage or midline shift CTA head, neck, 06/16/2025: 75% stenosis of the left carotid artery due to ulcerated plaque at the carotid bifurcation. MRI head, 06/15/2025: Acute infarct seen in the left parietal lobe similar to prior CT scan of the head performed same date and communicated to the ordering clinician at the time of the CT interpretation. Additional smaller acute cortical infarcts in the left occipital and left frontal lobe vital signs Vital Sign Date Time Temp Pulse Resp B/P (MAP) Pulse Ox O2 Delivery O2 Flow Rate FiO2 06/18/25 20:00 69 06/18/25 16:50 97.9 16 112/77 (89) 98 97.9 06/18/25 08:00 Room Air* 0 21 Total Intake and Output 06/17/25 06/17/25 06/18/25 15:00 23:00 07:00 Intake Total 300 ml 600 ml Balance 300 ml 600 ml medications Current Medications Medications Dose Ordered Sig/Lucy Route Start Time Stop Time Status Last Admin Dose Admin Sodium Chloride 10 ml Q8HR IV 06/15/25 14:00 06/18/25 21:18 10 ML Ondansetron HCl 4 mg Q4HP PRN IV 06/15/25 10:00 Morphine Sulfate 2 mg Q30M PRN IV 06/15/25 10:00 Acetaminophen/ Hydrocodone Bitart 1 tab Q4HP PRN PO 06/15/25 10:00 Docusate Sodium 100 mg BIDPRN PRN PO 06/15/25 10:00 Acetaminophen 650 mg Q6HP PRN PO 06/15/25 10:00 Nitroglycerin 0.4 mg Q5MINP PRN SL 06/15/25 10:00 Aspirin 81 mg DAILY PO 06/15/25 10:00 06/17/25 09:27 81 MG Enoxaparin Sodium 40 mg DAILY SC 06/17/25 10:00 06/17/25 09:29 40 MG Atorvastatin Calcium 80 mg HS PO 06/16/25 20:00 06/18/25 21:18 80 MG Clopidogrel Bisulfate 75 mg DAILY PO 06/17/25 10:00 07/06/25 11:00 06/17/25 09:28 75 MG objective General: the patient is well developed and nourished. No acute distress. MENTAL STATUS: Awake and alert. Oriented to person, place, time and general circumstances. Able to give personal history. SPEECH, LANGUAGE, HIGHER CORTICAL FUNCTION: no aphasia or dysathria. CRANIAL NERVES: Pupils are equal, round and reactive. EOMs full and conjugate. Facial sensation intact in all three divisions bilaterally. Mandibular strength intact. Facial muscles symmetrical and strength intact. SENSATION: Sensation to touch and pinprick is normal. MOTOR: Normal tone in the upper and lower extremity. Normal muscle bulk. No fasciculations. No abnormal movements or posturing. Muscle strength of the major groups in the extremities is 5/5 except for 4/5 in the right upper extremity. REFLEXES: Deep tendon reflexes normal and symmetrical. No pathological reflexes. CEREBELLAR/COORDINATION: Finger to nose and heel to guzman are normal bilaterally. GAIT/STATION: deferred. laboratory and microbiology Laboratory Tests 06/18/25 07:02 Test 06/18/25 07:02 Range/Units Serum Glucose 90 74-106 mg/dL Problem List Acute right upper extremity weakness Left carotid stenosis with ulcerated plaque Acute left parietal infarcts Sleep apnea not on CPAP machine Assessment/Plan Monitoring Supportive treatment Telemetry Angiogram in the morning Aspirin 81 mg daily Plavix 75 mg daily for 21 days Lipitor 80 mg daily CPAP 7 cmH2O in the hospital Dr. Coker to evaluate Stroke risk factors discussed with them, especially sleep apnea and its management More recommendation per clinical course This medical document was created using an electronic medical record system with [employer] dictation system. Although this document has been carefully reviewed, there may still be some phonetic and typographical errors. These areas are purely typographical due to imperfections of the software programs, and do not reflect any compromise in the patient's medical care. Prognosis poor Plan discussed with: Patient, Other CORTEZ CONWAY MD Jun 18, 2025 22:15
--- NOTE | 2025-06-18 23:11 | DVHPN2 ---
Progress Note - Dictate Date Seen: Jun 18, 2025 Medical Necessity Reason Pt with a Central, PICC or Fol: No Subjective Patient was seen and evaluated in follow up. Patient complains of generalized. Patient underwent transesophageal echocardiogram, LVEF estimated at 60%, no cardioembolic source of CVA. Telemetry reviewed. vital signs Vital Sign Date Time Temp Pulse Resp B/P (MAP) Pulse Ox O2 Delivery O2 Flow Rate FiO2 06/18/25 13:00 98.2 72 17 103/63 (76) 97 98.2 06/18/25 08:00 Room Air* 0 21 Total Intake and Output 06/17/25 06/17/25 06/18/25 15:00 23:00 07:00 Intake Total 300 ml 600 ml Balance 300 ml 600 ml medications Current Medications Medications Dose Ordered Sig/Lucy Route Start Time Stop Time Status Last Admin Dose Admin Sodium Chloride 10 ml Q8HR IV 06/15/25 14:00 06/18/25 05:30 10 ML Ondansetron HCl 4 mg Q4HP PRN IV 06/15/25 10:00 Morphine Sulfate 2 mg Q30M PRN IV 06/15/25 10:00 Acetaminophen/ Hydrocodone Bitart 1 tab Q4HP PRN PO 06/15/25 10:00 Docusate Sodium 100 mg BIDPRN PRN PO 06/15/25 10:00 Acetaminophen 650 mg Q6HP PRN PO 06/15/25 10:00 Nitroglycerin 0.4 mg Q5MINP PRN SL 06/15/25 10:00 Aspirin 81 mg DAILY PO 06/15/25 10:00 06/17/25 09:27 81 MG Enoxaparin Sodium 40 mg DAILY SC 06/17/25 10:00 06/17/25 09:29 40 MG Atorvastatin Calcium 80 mg HS PO 06/16/25 20:00 06/17/25 22:24 80 MG Clopidogrel Bisulfate 75 mg DAILY PO 06/17/25 10:00 07/06/25 11:00 06/17/25 09:28 75 MG objective GENERAL: Alert and oriented x 3. No acute distress. EYES: PERRL, EOMI. Anicteric. HENT: Moist mucous membranes. LUNGS: Clear to auscultation bilaterally. CARDIOVASCULAR: Regular rate and rhythm. ABDOMEN: Soft, non-tender and non-distended. EXTREMITIES: No edema. NEUROLOGIC: Right sided weakness. SKIN: Warm, dry. laboratory and microbiology Laboratory Tests 06/18/25 07:02 Test 06/18/25 07:02 Range/Units Serum Glucose 90 74-106 mg/dL Problem List Acute-subacute cerebrovascular accident. Hyperlipidemia. Nicotine dependent. Assessment/Plan Continued all current supportive medical care. Morphine and [place] for pain management. Aspirin, Lipitor, Plavix. DVT prophylactics. Nitro SL. Additional plan as per the hospital course. Plan discussed with: Patient SANCHEZ SHANNON MD Jun 18, 2025 13:08
[2025-06-19] VITALS (13 sets, daily range): BP systolic 92–115; BP diastolic 62–78; PULSE 62–81; RESP 11–18; TEMP 97.5–98.4; O2SAT 96–99
[2025-06-19 08:09] LABS: Chloride 104 mmol/L (98-107); Potassium 4.1 mmol/L (3.5-5.1); Sodium 139 mmol/L (136-145)
[2025-06-19 08:10] LABS: Anion Gap 11 (5-15); Carbon Dioxide 24 mmol/L (20-31)
[2025-06-19 08:11] LABS: Calcium 9.0 mg/dL (8.7-10.4)
[2025-06-19 08:15] LABS: Glucose 84 mg/dL (74-106)
[2025-06-19 08:16] LABS: BUN/Creatinine Ratio 16.2 (10.0-20.0); Blood Urea Nitrogen 12 mg/dL (9-23)
[2025-06-19 08:20] LABS: Hematocrit 45.9 % (41.0-53.0); Hemoglobin 16.2 g/dL (13.5-17.5); Mean Corpuscular Hemoglobin 31.5 pg (28.0-32.0); Mean Corpuscular Volume 89.2 fL (80.0-100.0); Nucleated Red Blood Cells % 0.0 %
--- NOTE | 2025-06-19 12:23 | DVHPN2 ---
Progress Note - Dictate Date Seen: Jun 18, 2025 Medical Necessity Reason Pt with a Central, PICC or Fol: No Subjective PT WITH CVA CTA OF HEAD POSITIVE FOR CAROTID STENOSIS CAROID DUPLEX NEGATIVE FOR STENOSIS vital signs Vital Sign Date Time Temp Pulse Resp B/P (MAP) Pulse Ox O2 Delivery O2 Flow Rate FiO2 06/19/25 08:25 98.1 62 16 100/63 (75) 97 98.1 06/19/25 08:00 Room Air* 0 21 Total Intake and Output 06/18/25 06/18/25 06/19/25 15:00 23:00 07:00 Intake Total 250 ml 400 ml Balance 250 ml 400 ml medications Current Medications Medications Dose Ordered Sig/Lucy Route Start Time Stop Time Status Last Admin Dose Admin Sodium Chloride 10 ml Q8HR IV 06/15/25 14:00 06/19/25 06:53 10 ML Ondansetron HCl 4 mg Q4HP PRN IV 06/15/25 10:00 Morphine Sulfate 2 mg Q30M PRN IV 06/15/25 10:00 Acetaminophen/ Hydrocodone Bitart 1 tab Q4HP PRN PO 06/15/25 10:00 Docusate Sodium 100 mg BIDPRN PRN PO 06/15/25 10:00 Acetaminophen 650 mg Q6HP PRN PO 06/15/25 10:00 Nitroglycerin 0.4 mg Q5MINP PRN SL 06/15/25 10:00 Aspirin 81 mg DAILY PO 06/15/25 10:00 06/17/25 09:27 81 MG Enoxaparin Sodium 40 mg DAILY SC 06/17/25 10:00 06/17/25 09:29 40 MG Atorvastatin Calcium 80 mg HS PO 06/16/25 20:00 06/18/25 21:18 80 MG Clopidogrel Bisulfate 75 mg DAILY PO 06/17/25 10:00 07/06/25 11:00 06/17/25 09:28 75 MG laboratory and microbiology Laboratory Tests 06/19/25 06:32 Test 06/19/25 06:32 Range/Units Serum Glucose 84 74-106 mg/dL Problem List CVA CTA OF HEAD POSITIVE FOR CAROTID STENOSIS CAROID DUPLEX NEGATIVE FOR STENOSIS Assessment/Plan WILL PROCEED WITH CAROTID ANGIO Plan discussed with: Patient ADONAY BERMAN MD Jun 19, 2025 12:23
[2025-06-19] MEDS: IODIXANOL 320MG/ML 100ML BTL IV ONE (12:31)
[2025-06-19] MEDS: fentaNYL CITRATE 100 MCG/2 ML VL ONE (13:01)
[2025-06-19] MEDS: MIDAZOLAM HCL 2MG/2ML 2ml VIAL (1mg/ml) ONE (13:01)
[2025-06-19] MEDS: LIDOCAINE 2%HCL (LOCAL ANESTH.) INJ 20ML MDV ONE (13:02)
[2025-06-19] MEDS: SODIUM CHL 0.9% 50 ML ONE (13:17)
[2025-06-19] MEDS: ANGIOMAX 250 MG VIAL IV ONE (13:17)
[2025-06-19] MEDS: GLYCOPYRROLATE 0.2 MG/ML 1ML VIAL ONE ×2 (13:23→13:29)
[2025-06-19] MEDS: CLOPIDOGREL BISULFATE 75 MG TAB ONE (13:38)
--- NOTE | 2025-06-19 13:45 | DVHPN2 ---
Progress Note - Dictate Date Seen: Jun 19, 2025 Medical Necessity Reason Pt with a Central, PICC or Fol: No Subjective PT WITH CVA CTA OF HEAD POSITIVE FOR CAROTID STENOSIS CAROID DUPLEX NEGATIVE FOR STENOSIS vital signs Vital Sign Date Time Temp Pulse Resp B/P (MAP) Pulse Ox O2 Delivery O2 Flow Rate FiO2 06/19/25 12:40 97.5 65 16 110/78 (89) 96 97.5 06/19/25 08:00 Room Air* 0 21 Total Intake and Output 06/18/25 06/18/25 06/19/25 14:59 22:59 06:59 Intake Total 250 ml 400 ml Balance 250 ml 400 ml medications Current Medications Medications Dose Ordered Sig/Lucy Route Start Time Stop Time Status Last Admin Dose Admin Sodium Chloride 10 ml Q8HR IV 06/15/25 14:00 06/19/25 06:53 10 ML Ondansetron HCl 4 mg Q4HP PRN IV 06/15/25 10:00 Morphine Sulfate 2 mg Q30M PRN IV 06/15/25 10:00 Acetaminophen/ Hydrocodone Bitart 1 tab Q4HP PRN PO 06/15/25 10:00 Docusate Sodium 100 mg BIDPRN PRN PO 06/15/25 10:00 Acetaminophen 650 mg Q6HP PRN PO 06/15/25 10:00 Nitroglycerin 0.4 mg Q5MINP PRN SL 06/15/25 10:00 Aspirin 81 mg DAILY PO 06/15/25 10:00 06/17/25 09:27 81 MG Enoxaparin Sodium 40 mg DAILY SC 06/17/25 10:00 06/17/25 09:29 40 MG Atorvastatin Calcium 80 mg HS PO 06/16/25 20:00 06/18/25 21:18 80 MG Clopidogrel Bisulfate 75 mg DAILY PO 06/17/25 10:00 07/06/25 11:00 06/17/25 09:28 75 MG laboratory and microbiology Laboratory Tests 06/19/25 06:32 Test 06/19/25 06:32 Range/Units Serum Glucose 84 74-106 mg/dL Problem List CVA CTA OF HEAD POSITIVE FOR CAROTID STENOSIS CAROID DUPLEX NEGATIVE FOR STENOSIS Assessment/Plan WILL PROCEED WITH CAROTID ANGIO s/p fire captain marine stent left ICA Plan discussed with: Patient ADONAY BERMAN MD Jun 19, 2025 13:45
--- NOTE | 2025-06-19 15:30 | DVHOP ---
DATE OF SURGERY: 06/19/2025 INDICATIONS: The patient with right-sided weakness. Left-sided embolization. The patient had a significant narrowing noted in the left internal carotid artery. Heavy calcification and ulceration by CT. The patient is now to undergo carotid angiography with possibility of angioplasty. PROCEDURES PERFORMED: * Selective left and right cerebral angiography. * Left and right carotid angiography. * Left and right subclavian angiography. * Iliac angiography. * Conscious sedation. * Angioplasty, thrombectomy of the left internal carotid artery with stent placement, a 9 x x 30 mm Xact stent with use of distal embolic shield. DESCRIPTION OF PROCEDURE: The patient was prepped and draped under sterile condition. 1% Xylocaine used to anesthetize the right groin. Using a Cook needle, right femoral was engaged with Seldinger technique, a 6-Northern Irish sheath in the right femoral artery. Using a 6-Northern Irish JR-4 diagnostic catheter, selective left and right subclavian to internal common carotid artery to the internal and external carotid artery and cerebral arteries were performed. Then, the 6-Northern Irish diagnostic system was exchanged for a 6-Northern Irish interventional system. An 8-Northern Irish sheath was introduced. Then, a 6-Northern Irish JR-4 diagnostic catheter was used to cannulate the left common carotid. A Supercore wire was then placed in the distal left external carotid artery. The JR-4 diagnostic catheter was then exchanged for an 8-Northern Irish multipurpose guide catheter. Following that, the Emboshield was deployed per protocol. Then, it was then balloon angioplastied. A 4 mm x 13 mm Shockwave thrombectomy catheter was used. Following the dilatation, a 9 x 7 x 30 mm Xact stent was then deployed across the lesion. Following the deployment, the Emboshield distal embolic protection device was then retrieved. There were no complications. The patient tolerated the procedure. RESULTS: * Left and right common carotid without any flow restrictive lesion. * Right internal carotid artery mild intimal irregularity without any flow restrictive lesion. * Right external carotid artery without any flow restrictive lesion. * Left internal carotid artery had high-grade narrowing, about 70% ulcerating plaque, heavily calcified lesion with soft thrombus noted. Status post thrombectomy with deployment of distal protection device followed by stent. A 9 x 7 x 30 mm Xact stent was then deployed across the plaque. There were no complications. The patient tolerated the procedure well. Less than 10% residual stenosis. CONCLUSION: The patient underwent successful angioplasty with stent placement of the left internal carotid artery at the bifurcation of the external carotid artery. Soft plaque was noted consistent with an embolic event. At this time, the patient should be anticoagulated aggressively and we will continue to monitor the patient. Neurological status pre and post-intervention did not change. Jean August MD SA/GOMEZ/JASON TID: [id number] RECEIPT: [id number]
--- NOTE | 2025-06-19 16:57 | DVHPNRES ---
Progress Note Date Seen: Jun 19, 2025 Resident Creating Document: CHRISSY GAMINO Medical Necessity Reason Pt with a Central, PICC or Fol: No Subjective Review of Systems Today patient continues to have mild numbness tingling in the right upper extremity. The patient underwent successful angioplasty with stent placement of the left internal carotid artery at the bifurcation of the external carotid artery. Patient should be anticoagulated aggressively and we will continue to monitor. Objective vital signs Vital Sign Date Time Temp Pulse Resp B/P (MAP) Pulse Ox O2 Delivery O2 Flow Rate FiO2 06/19/25 14:48 63 16 94/64 (74) 96 06/19/25 13:48 98.0 98.0 06/19/25 08:00 Room Air* 0 21 Total Intake and Output 06/18/25 06/18/25 06/19/25 15:00 23:00 07:00 Intake Total 250 ml 400 ml Balance 250 ml 400 ml medications Current Medications Medications Dose Ordered Sig/Lucy Route Start Time Stop Time Status Last Admin Dose Admin Sodium Chloride 10 ml Q8HR IV 06/15/25 14:00 06/19/25 06:53 10 ML Ondansetron HCl 4 mg Q4HP PRN IV 06/15/25 10:00 Morphine Sulfate 2 mg Q30M PRN IV 06/15/25 10:00 Acetaminophen/ Hydrocodone Bitart 1 tab Q4HP PRN PO 06/15/25 10:00 Docusate Sodium 100 mg BIDPRN PRN PO 06/15/25 10:00 Acetaminophen 650 mg Q6HP PRN PO 06/15/25 10:00 Nitroglycerin 0.4 mg Q5MINP PRN SL 06/15/25 10:00 Aspirin 81 mg DAILY PO 06/15/25 10:00 06/17/25 09:27 81 MG Enoxaparin Sodium 40 mg DAILY SC 06/17/25 10:00 06/17/25 09:29 40 MG Atorvastatin Calcium 80 mg HS PO 06/16/25 20:00 06/18/25 21:18 80 MG Clopidogrel Bisulfate 75 mg DAILY PO 06/17/25 10:00 07/06/25 11:00 06/17/25 09:28 75 MG Examination General Appearance: Cooperative. Well developed. Well nourished. NAD Head Exam: Normal inspection, intact extraocular movements, equal and reactive pupils. Adequate function of muscles of facial expression, muscles of mastication. No tongue deviation noted. Pulmonary/Respiratory: Chest non-tender. Clear bilateral breath sounds, no crackles, no wheezing. Cardiovascular/Chest: Regular rate and rhythm. No murmurs. No JVD. Peripheral Pulses: 2+ Radial (R). 2+ Radial (L). 2+ Pedal (R). 2+ Pedal (L) Abdominal Exam: Normal bowel sounds. Soft. normal abdomen, no visible veins, Nontender. No hepatosplenomegaly. No masses Ankle Exam: Negative ankle edema Lower extremities: Negative lower extremity edema. Right femoral artery access site with no signs of bleeding/hematuria Neuro/Mental Status: A&O x4. Coherent. Bilateral lower extremity 5/5 strength. Left upper extremity 5/5, right upper extremity 4/5. Sensations intact except right upper extremity with change in sensation. Thoughts/Psych: Normal thought pattern. Appropriate mood and affect. Good judgement and insight Skin Exam: Normal inspection. Normal color. Warm. Dry laboratory and microbiology Laboratory Tests 06/19/25 06:32 Test 06/19/25 06:32 Range/Units Serum Glucose 84 74-106 mg/dL Labs and/or images reviewed: Labs reviewed by me, Image(s) reviewed by me Problem List/Assessment/Plan Problem List/Assessment/Plan # Acute-subacute multiple strokes s/p thrombectomy of the left internal carotid artery with stent placement - head CT: Hypodensity with loss of dumont might matter differentiation in the left parietal lobe consistent with acute or subacute infarct. - brain MRI: Acute infarcts seen in left parietal lobe similar to prior CT scan of the head, additional smaller acute cortical infarcts in the left occipital and left frontal lobe. - carotid Doppler: No hemodynamically significant stenosis noted in the right and left carotid system - CT angiography head and neck: 75% stenosis of the left carotid artery due to ulcerated plaque at the carotid bifurcation, remaining intra-arterial cerebral vessels are patent. - JAYLEN results as below - aspirin 81 mg - clopidogrel 75 mg - atorvastatin 40 mg - neurology consulted - PT evaluation requested - Carotid angioplasty- stent placement of the left internal carotid artery at the bifurcation of the external carotid artery # Thrombocytosis - unclear etiology; to be investigated outpatient # Hyperlipidemia - atorvastatin 40 mg - counseled extensively about dietary and lifestyle modification # Tobacco use disorder - counseled tobacco use cessation for 16 minutes JAYLEN results: Left Ventricle: Normal LV size and function, LVEF estimated at 60% Right Ventricle: Normal RV size and function Left atrium: normal size Right atrium normal RA Left atrial appendage: no thrombus noted, Aortic valve: trileaflet valve, no severe or AI Mitral Valve: structurally normal, trace mitral regurgitation, no MS Tricuspid Valve: trace to mild tricuspid regurgitation, no TS Pulmonic Valve: structurally normal, no severe PS Interatrial septum: negative color flow for R to L shunt, negative bubble study for shunting Ascending aorta: no severe plaquing DVT prophylaxis: Lovenox 40mg Goals of care discussed with the patient for 20 minutes: Full code Plan discussed with patient Plan discussed with Dr. Newman Plan discussed with: Patient (RN), Other (RN) My Orders My Orders Orders - CHRISSY GAMINO Procedure Category Date Status Time Discharge DISCHARGE 06/18/25 Verified 18:38 ADDENDUM ADDENDUM ADDENDUM I was physically present for the napoles portions of the service provided to patient by THE RESIDENT. I have reviewed the documentation, discussed the case with resident and agree with the resident's documentation except as noted. Also the patient's clinical case was discussed with the patient's nurse. This medical document was created using an electronic medical record system with computerized dictation system. Although this document has been carefully reviewed, there might still be some phonetic and typographical errors. These areas are purely typographical due to imperfections of the software programs, and do not reflect any compromise in the patient's medical care. Late signature. Date of Service: Jun 19, 2025 Billing Provider: KALPANA NEWMAN MD Common Visit Codes: 34609-[id number] INP/OBS CARE(HIGH) Secondary Visit Codes: 42094-IHDPJ CHNG SMOKING >10MIN (16 minutes), 81423- ADVANCED CARE PLAN 30 MINUTES (20 minutes) CHRISSY GAMINO Jun 19, 2025 16:57 ANIL ALEXANDRA RESIDENT Jun 19, 2025 19:12 KALPANA NEWMAN MD Jun 22, 2025 09:43
[2025-06-19] MEDS: HYDROcodone-ACET 5/325MG TAB PO PRN (18:18)
--- NOTE | 2025-06-19 20:27 | DVHPN2 ---
Progress Note - Dictate Date Seen: Jun 19, 2025 Medical Necessity Reason Pt with a Central, PICC or Fol: No Subjective Patient was seen and evaluated in follow up. Patient is complaining of generalized discomfort. Patient is s/p PLASTER APPLICATOR stent left ICA. CBC and CBC are unremarkable. Telemetry reviewed. vital signs Vital Sign Date Time Temp Pulse Resp B/P (MAP) Pulse Ox O2 Delivery O2 Flow Rate FiO2 06/19/25 12:40 97.5 65 16 110/78 (89) 96 97.5 06/19/25 08:00 Room Air* 0 21 Total Intake and Output 06/18/25 06/18/25 06/19/25 15:00 23:00 07:00 Intake Total 250 ml 400 ml Balance 250 ml 400 ml medications Current Medications Medications Dose Ordered Sig/Lucy Route Start Time Stop Time Status Last Admin Dose Admin Sodium Chloride 10 ml Q8HR IV 06/15/25 14:00 06/19/25 06:53 10 ML Ondansetron HCl 4 mg Q4HP PRN IV 06/15/25 10:00 Morphine Sulfate 2 mg Q30M PRN IV 06/15/25 10:00 Acetaminophen/ Hydrocodone Bitart 1 tab Q4HP PRN PO 06/15/25 10:00 Docusate Sodium 100 mg BIDPRN PRN PO 06/15/25 10:00 Acetaminophen 650 mg Q6HP PRN PO 06/15/25 10:00 Nitroglycerin 0.4 mg Q5MINP PRN SL 06/15/25 10:00 Aspirin 81 mg DAILY PO 06/15/25 10:00 06/17/25 09:27 81 MG Enoxaparin Sodium 40 mg DAILY SC 06/17/25 10:00 06/17/25 09:29 40 MG Atorvastatin Calcium 80 mg HS PO 06/16/25 20:00 06/18/25 21:18 80 MG Clopidogrel Bisulfate 75 mg DAILY PO 06/17/25 10:00 07/06/25 11:00 06/17/25 09:28 75 MG objective GENERAL: Alert and oriented x 3. No acute distress. EYES: PERRL, EOMI. Anicteric. HENT: Moist mucous membranes. LUNGS: Clear to auscultation bilaterally. CARDIOVASCULAR: Regular rate and rhythm. ABDOMEN: Soft, non-tender and non-distended. EXTREMITIES: No edema. NEUROLOGIC: Right sided weakness. SKIN: Warm, dry. laboratory and microbiology Laboratory Tests 06/19/25 06:32 Test 06/19/25 06:32 Range/Units Serum Glucose 84 74-106 mg/dL Problem List Acute-subacute cerebrovascular accident. Hyperlipidemia. Nicotine dependent. Assessment/Plan Continued all current supportive medical care. Morphine and [place] for pain management. Nitro SL. Additional plan as per the hospital course. Plan discussed with: Patient SANCHEZ SHANNON MD Jun 19, 2025 14:39
--- NOTE | 2025-06-19 23:51 | DVHPN2 ---
Progress Note - Dictate Date Seen: Jun 19, 2025 Medical Necessity Reason Pt with a Central, PICC or Fol: No Subjective Mr. Pulido is a 50 years old right-handed gentleman with a history of o bstructive sleep apnea, he came to the [facility] on 06/15/2025 with a chief complaint of right arm paresthesia weakness. I have seen and examined the patient, I have talked to his nurse, he is doing fine, no new complaints CBC, 06/16/2025: Unremarkable CMP, 06/16/2025: Unremarkable TG/HDL/LDL/HDL, 06/15/2025: 184/163/111/31 TSH, 06/15/2025: 0.98 JAYLEN, 06/18/2025: Left Ventricle: Normal LV size and function, LVEF estimated at 60% Right Ventricle: NOrmal RV size and function Left atrium: normal size Right atrium normal RA Left atrial appendage: no thrombus noted, Aortic valve: trileaflet valve, no severe or AI Mitral Valve: structurally normal, trace mitral regurg, no MS Tricuspid Valve: trace to mild tricuspid regurgitaiton, no TS Pulmonic Valve: structurally normal, no severe PIor PS Interatrial septum: negative color flow for R to L shunt, negative bubble study for shunting Ascending aorta: no severe plaquing CT head, 06/15/2025: Hypodensity with loss of dumont-white matter differentiation in the left parietal lobe consistent with acute or subacute infarct. No acute intracranial hemorrhage or midline shift CTA head, neck, 06/16/2025: 75% stenosis of the left carotid artery due to ulcerated plaque at the carotid bifurcation. MRI head, 06/15/2025: Acute infarct seen in the left parietal lobe similar to prior CT scan of the head performed same date and communicated to the ordering clinician at the time of the CT interpretation. Additional smaller acute cortical infarcts in the left occipital and left frontal lobe Carotid angioplasty, 06/19/25: Successful carotid angioplasty with left ICA stent vital signs Vital Sign Date Time Temp Pulse Resp B/P (MAP) Pulse Ox O2 Delivery O2 Flow Rate FiO2 06/19/25 21:00 97.6 64 15 115/77 (90) 96 97.6 06/19/25 08:00 Room Air* 0 21 Total Intake and Output 06/18/25 06/18/25 06/19/25 15:00 23:00 07:00 Intake Total 250 ml 400 ml Balance 250 ml 400 ml medications Current Medications Medications Dose Ordered Sig/Lucy Route Start Time Stop Time Status Last Admin Dose Admin Sodium Chloride 10 ml Q8HR IV 06/15/25 14:00 06/19/25 21:11 10 ML Ondansetron HCl 4 mg Q4HP PRN IV 06/15/25 10:00 Morphine Sulfate 2 mg Q30M PRN IV 06/15/25 10:00 Acetaminophen/ Hydrocodone Bitart 1 tab Q4HP PRN PO 06/15/25 10:00 06/19/25 23:14 1 TAB Docusate Sodium 100 mg BIDPRN PRN PO 06/15/25 10:00 Acetaminophen 650 mg Q6HP PRN PO 06/15/25 10:00 Nitroglycerin 0.4 mg Q5MINP PRN SL 06/15/25 10:00 Aspirin 81 mg DAILY PO 06/15/25 10:00 06/17/25 09:27 81 MG Enoxaparin Sodium 40 mg DAILY SC 06/17/25 10:00 06/17/25 09:29 40 MG Atorvastatin Calcium 80 mg HS PO 06/16/25 20:00 06/19/25 21:06 80 MG Clopidogrel Bisulfate 75 mg DAILY PO 06/17/25 10:00 07/06/25 11:00 06/17/25 09:28 75 MG objective General: the patient is well developed and nourished. No acute distress. MENTAL STATUS: Awake and alert. Oriented to person, place, time and general circumstances. Able to give personal history. SPEECH, LANGUAGE, HIGHER CORTICAL FUNCTION: no aphasia or dysathria. CRANIAL NERVES: Pupils are equal, round and reactive. EOMs full and conjugate. Facial sensation intact in all three divisions bilaterally. Mandibular strength intact. Facial muscles symmetrical and strength intact. SENSATION: Sensation to touch and pinprick is normal. MOTOR: Normal tone in the upper and lower extremity. Normal muscle bulk. No fasciculations. No abnormal movements or posturing. Muscle strength of the major groups in the extremities is 5/5 except for 4/5 in the right upper extremity. REFLEXES: Deep tendon reflexes normal and symmetrical. No pathological reflexes. CEREBELLAR/COORDINATION: Finger to nose and heel to guzman are normal bilaterally. GAIT/STATION: deferred. laboratory and microbiology Laboratory Tests 06/19/25 06:32 Test 06/19/25 06:32 Range/Units Serum Glucose 84 74-106 mg/dL Problem List Acute right upper extremity weakness Left carotid stenosis with ulcerated plaque Acute left parietal infarcts Sleep apnea not on CPAP machine Assessment/Plan Monitoring Supportive treatment Telemetry Aspirin 81 mg daily Plavix 75 mg daily Lipitor 80 mg daily CPAP 7 cmH2O in the hospital Dr. Coker to evaluate Stroke risk factors discussed with them, especially sleep apnea and its management More recommendation per clinical course This medical document was created using an electronic medical record system with [employer] dictation system. Although this document has been carefully reviewed, there may still be some phonetic and typographical errors. These areas are purely typographical due to imperfections of the software programs, and do not reflect any compromise in the patient's medical care. Prognosis poor Plan discussed with: Patient, Other CORTEZ CONWAY MD Jun 19, 2025 23:51
[2025-06-20] VITALS (7 sets, daily range): BP systolic 105–111; BP diastolic 50–75; PULSE 57–68; RESP 16–17; TEMP 97.5–98.6; O2SAT 95–98
[2025-06-20 07:59] LABS: Hematocrit 48.4 % (41.0-53.0); Hemoglobin 16.6 g/dL (13.5-17.5); Mean Corpuscular Hemoglobin 30.8 pg (28.0-32.0); Mean Corpuscular Volume 89.8 fL (80.0-100.0); Nucleated Red Blood Cells % 0.0 %
[2025-06-20 08:11] LABS: Calcium 9.1 mg/dL (8.7-10.4); Chloride 102 mmol/L (98-107); Potassium 3.9 mmol/L (3.5-5.1); Sodium 137 mmol/L (136-145)
[2025-06-20 08:12] LABS: Anion Gap 10 (5-15); Carbon Dioxide 25 mmol/L (20-31)
[2025-06-20 08:17] LABS: BUN/Creatinine Ratio 14.7 (10.0-20.0); Blood Urea Nitrogen 11 mg/dL (9-23); Glucose 85 mg/dL (74-106)
[2025-06-20] MEDS: CLOPIDOGREL BISULFATE 75 MG TAB PO SCH (09:17)
[2025-06-20] MEDS ORDERED: ATOR-47 PO (16:36)
[2025-06-20] MEDS ORDERED: CLOP75TA28 PO (16:36)
[2025-06-20] MEDS ORDERED: ASPI-325 PO (16:36)
--- NOTE | 2025-06-20 16:42 | DVHDS2 ---
Discharge Summary Date of Admission Jun 15, 2025 at 09:36 Date of Discharge: Jun 18, 2025 Labs/Diagnostic Data: Laboratory Results Test 06/20/25 06:29 06/18/25 20:45 06/16/25 05:25 06/15/25 09:28 White Blood Count 9.9 10^3/uL (4.4-10.8) Red Blood Count 5.39 10^6/uL (4.5-5.90) Hemoglobin 16.6 g/dL (13.5-17.5) Hematocrit 48.4 % (41.0-53.0) Mean Corpuscular Volume 89.8 fL (80.0-100.0) Mean Corpuscular Hemoglobin 30.8 pg (28.0-32.0) Mean Corpuscular Hemoglobin Concent 34.3 g/dL (32.0-36.0) Red Cell Distribution Width 13.2 % (11.8-14.3) Platelet Count 667 10^3/uL (140-450) Mean Platelet Volume 7.6 fL (6.9-10.8) Neutrophils (%) (Auto) 71.2 % (37.0-80.0) Lymphocytes (%) (Auto) 19.7 % (10.0-50.0) Monocytes (%) (Auto) 6.4 % (0.0-12.0) Eosinophils (%) (Auto) 1.9 % (0.0-7.0) Basophils (%) (Auto) 0.8 % (0.0-2.0) Neutrophils # (Auto) 7.1 10 ^3/uL (1.6-8.6) Lymphocytes # (Auto) 2.0 10 ^3/uL (0.4-5.4) Monocytes # (Auto) 0.6 10 ^3/uL (0-1.3) Eosinophils # (Auto) 0.2 10 ^3/uL (0-0.8) Basophils # (Auto) 0.1 10 ^3/uL (0-0.2) Nucleated Red Blood Cells 0.0 % Sodium Level 137 mmol/L (136-145) Potassium Level 3.9 mmol/L (3.5-5.1) Chloride Level 102 mmol/L (98-107) Carbon Dioxide Level 25 mmol/L (20-31) Anion Gap 10 (5-15) Blood Urea Nitrogen 11 mg/dL (9-23) Creatinine 0.75 mg/dL (0.700-1.30) Glomerular Filtration Rate Calc 111 mL/min (>90) BUN/Creatinine Ratio 14.7 (10.0-20.0) Serum Glucose 85 mg/dL (74-106) Calcium Level 9.1 mg/dL (8.7-10.4) Urine Color Light-yellow (Yellow) Urine Clarity Clear (Clear) Urine pH 6.0 (5.0-9.0) Urine Specific [place] 1.019 (1.001-1.035) Urine Protein Negative (Negative) Urine Ketones 2+ (Negative) Urine Blood 1+ /uL (Negative) Urine Nitrite Negative (Negative) Urine Bilirubin Negative (Negative) Urine Urobilinogen Normal mg/dL (Negative) Urine Leukocyte Esterase Negative /uL (Negative) Urine RBC 7 /hpf (0 - 3) Urine Microscopic WBC 1 /HPF (0-3) Urine Squamous Epithelial Cells Few /hpf (<5) Urine Bacteria None seen /hpf (None Seen) Urine Glucose Normal mg/dL (Normal) Urine Opiates Screen Neg (NEGATIVE) Urine Fentanyl Screen Pos (NEGATIVE) Urine Barbiturates Screen Neg (NEGATIVE) Urine Phencyclidine Screen Neg (NEGATIVE) Urine Amphetamines Screen Neg (NEGATIVE) Urine Benzodiazepines Screen Pos (NEGATIVE) Urine Cocaine Screen Neg (NEGATIVE) Urine Cannabinoids Screen Neg (NEGATIVE) Total Bilirubin 0.7 mg/dL (0.2-1.0) Aspartate Amino Transferase (AST) 16 U/L (13-40) Alanine Aminotransferase (ALT) 11 U/L (7-40) Alkaline Phosphatase 69 U/L (46-116) Total Protein 6.6 g/dL (5.7-8.2) Albumin 3.9 g/dL (3.2-4.8) Troponin I High Sensitivity 3 ng/L (</=54) Test 06/15/25 08:20 Prothrombin Time 11.2 sec (9.3-11.8) Prothrombin Time INR 1.06 (0.9-1.15) Activated Partial Thromboplast Time 27.6 SEC (24.5-34.5) Hemoglobin A1c 5.4 % A1C (<5.7) Magnesium Level 2.1 mg/dL (1.6-2.6) B-Type Natriuretic Peptide 22.07 pg/mL (0-100) Triglycerides Level 184 mg/dL (< 150) Cholesterol Level 163 mg/dL (< 200) LDL Cholesterol 111 mg/dL (< 100) HDL Cholesterol 31 mg/dL (40-59) Thyroid Stimulating Hormone (TSH) 0.98 uIU/mL (0.55-4.78) Other Laboratory Tests 06/20/25 06:29 Brief Hx & Hospital Course: Patient is a 50-year-old male with past medical history of obstructive sleep apnea who came in after having numbness and tingling in right upper extremity. According to the patient, on 06/14/2025 around 10:00 p.m. he felt "weird" along with numbness, tingling radiating of right upper extremity and decreased strength which is what prompted this visit to the hospital. Patient denies having similar symptoms in the past. At the time of examination, patient continues to have mild numbness tingling in the right upper extremity. Head CT showed hypodensity with loss of dumont white matter differentiation in the left parietal lobe consistent with acute or subacute infarct. Brain MRI shows Acute infarct seen in the left parietal lobe similar to prior CT scan of the head performed same date and communicated to the ordering clinician at the time of the CT interpretation. Additional smaller acute cortical infarcts in the left occipital and left frontal lobe. Patient was started on aspirin, atorvastatin, clopidogrel. CT angiogram Head/Neck shows 75% stenosis of the left carotid artery due to ulcerated plaque at the carotid bifurcation. Neurology was consulted. 06/20: Patient admitted for stroke left parietal lobe. Brain MRI confirming stroke left parietal lobe and additional smaller strokes in left occipital and left frontal. Doppler nonsignificant CT angio head and neck showing 75% stenosis of left carotid artery cardiology was consulted ashish 60% EF. cardiology take patient to laboratory tester 06/19/2025, procedure done with carotid angioplasty and stent placement left internal carotid at the bifurcation of the external carotid artery. Patient doing better. Cleared by Neurology and Cardiology. Patient is stable for discharge as per plan below. Diagnosis: Acute cerebral stroke Carotid stenosis status post PTCA angioplasty left carotid Hyperlipidemia Nicotine dependence discharge plan: Start taking aspirin 81 daily, clopidogrel 75 mg daily, Lipitor 80 mg daily, Follow up with Cardiology Dr. Pena Follow up with Neurology Dr. El Follow up with PCP to review discharge Continue other home medications not mentioned above Condition at Discharge: Stable (RN) Final Diagnosis/Problems List Acute cerebral stroke Carotid stenosis status post PTCA angioplasty left carotid Hyperlipidemia Nicotine dependence Discharge Disposition: Home SNF Discharge Will this Physician continue t: No Discharge Instruct/Medications Diet: Regular Activity: No Restrictions, As Tolerated Follow Up/Referral: Follow up with PCP within 1 week. Follow up with vascular surgeon within 1 week. Medications: continue home medications as per EMR Scheduled Aspirin (Aspirin Low Dose), 81 MG PO DAILY Atorvastatin Calcium (Atorvastatin Calcium), 1 TAB PO DAILY Clopidogrel Bisulfate (Plavix), 1 TAB PO DAILY Discharge Statement: "Patient was advised to return to the ER or call 911 if any headaches, dizziness, shortness of breath, chest pain, abdominal pain, bleeding, fevers, or worsening of medical condition. Patient was counseled about treatment plan, medications, possible side effects, patientverbalized understanding. All questions were answered to the best of my ability. This discharge took greater then 30 minutes in planning, reviewing documentation, counseling the patient, and discussing with other team members." Date of Service: Jun 20, 2025 Billing Provider: SP PERAZA MD Common Visit Codes: 97479-QQO/OBS DISCH DAY >30min SP PERAZA MD Jun 20, 2025 16:42
--- NOTE | 2025-06-20 23:09 | DVHPN2 ---
Progress Note - Dictate Date Seen: Jun 20, 2025 Medical Necessity Reason Pt with a Central, PICC or Fol: No Subjective Patient was seen and evaluated in follow up. Patient has no new complaints at this time. Patient denies any cardiac symptoms. Patient is cardiac stable for discharge. Telemetry reviewed. vital signs Vital Sign Date Time Temp Pulse Resp B/P (MAP) Pulse Ox O2 Delivery O2 Flow Rate FiO2 06/20/25 12:53 98.1 68 16 106/50 (68) 98 98.1 06/20/25 07:30 Room Air* 0 21 Total Intake and Output 06/19/25 06/19/25 06/20/25 15:00 23:00 07:00 Intake Total 745 ml 800 ml Output Total 750 ml Balance 745 ml 50 ml medications Current Medications Medications Dose Ordered Sig/Lucy Route Start Time Stop Time Status Last Admin Dose Admin Sodium Chloride 10 ml Q8HR IV 06/15/25 14:00 06/20/25 06:40 10 ML Ondansetron HCl 4 mg Q4HP PRN IV 06/15/25 10:00 Morphine Sulfate 2 mg Q30M PRN IV 06/15/25 10:00 Acetaminophen/ Hydrocodone Bitart 1 tab Q4HP PRN PO 06/15/25 10:00 06/19/25 23:14 1 TAB Docusate Sodium 100 mg BIDPRN PRN PO 06/15/25 10:00 Acetaminophen 650 mg Q6HP PRN PO 06/15/25 10:00 Nitroglycerin 0.4 mg Q5MINP PRN SL 06/15/25 10:00 Aspirin 81 mg DAILY PO 06/15/25 10:00 06/20/25 09:18 81 MG Enoxaparin Sodium 40 mg DAILY SC 06/17/25 10:00 06/20/25 09:18 40 MG Atorvastatin Calcium 80 mg HS PO 06/16/25 20:00 06/19/25 21:06 80 MG Clopidogrel Bisulfate 75 mg DAILY PO 06/20/25 10:00 06/20/25 09:17 75 MG objective GENERAL: Alert and oriented x 3. No acute distress. EYES: PERRL, EOMI. Anicteric. HENT: Moist mucous membranes. LUNGS: Clear to auscultation bilaterally. CARDIOVASCULAR: Regular rate and rhythm. ABDOMEN: Soft, non-tender and non-distended. EXTREMITIES: No edema. NEUROLOGIC: Right sided weakness. SKIN: Warm, dry. laboratory and microbiology Laboratory Tests 06/20/25 06:29 Test 06/20/25 06:29 Range/Units Serum Glucose 85 74-106 mg/dL Problem List Acute-subacute cerebrovascular accident. Hyperlipidemia. Nicotine dependent. Assessment/Plan Continued all current supportive medical care. Aspirin,Plavix. Morphine and Tylenol for pain management. Nitro SL. Additional plan as per the hospital course. Plan discussed with: Patient SANCHEZ SHANNON MD Jun 20, 2025 14:16
--- NOTE | 2025-06-22 13:22 | DVHPN2 ---
Progress Note - Dictate Date Seen: Jun 20, 2025 Medical Necessity Reason Pt with a Central, PICC or Fol: No Subjective PT WITH CVA CTA OF HEAD POSITIVE FOR CAROTID STENOSIS CAROID DUPLEX NEGATIVE FOR STENOSIS vital signs Vital Sign Date Time Temp Pulse Resp B/P (MAP) Pulse Ox O2 Delivery O2 Flow Rate FiO2 06/20/25 17:56 97.5 66 16 98 06/20/25 17:00 111/75 (87) 06/20/25 07:30 Room Air* 0 21 laboratory and microbiology Laboratory Tests 06/20/25 06:29 Test 06/20/25 06:29 Range/Units Serum Glucose 85 74-106 mg/dL Problem List CVA CTA OF HEAD POSITIVE FOR CAROTID STENOSIS CAROID DUPLEX NEGATIVE FOR STENOSIS Assessment/Plan WILL PROCEED WITH CAROTID ANGIO s/p guard captain stent left ICA * Selective left and right cerebral angiography. * Left and right carotid angiography. * Left and right subclavian angiography. * Iliac angiography. * Conscious sedation. * Angioplasty, thrombectomy of the left internal carotid artery with stent placement, a 9 x7x 30 mm Xact stent with use of distal embolic shield. MAY DC HOME Dietary Evaluation Review Comments: Monitor PO intake, lab values, weight trend, and I/O Expected Outcomes/Goals: To meet >75% estimated needs Fu 3-5 days Plan discussed with: Patient ADONAY BERMAN MD Jun 22, 2025 13:22
== END 2025-06-20 18:32 | disposition home or self-care (01) | DRG 30 ==
LOC: ER 08:05 → OVERFLOW 09:36 → ER 09:41 → TELE-WESTW 06-16 22:00
PROVIDERS: ADMIT Internal Medicine Geriatric Medicine; ATTEND Internal Medicine Cardiovascular Disease
PROC: B24BZZ4 Ultrasonography of Heart with Aorta, Transesophageal (ICD-10-PCS; 2025-06-18)
PROC: 037L3DZ Dilation of Left Internal Carotid Artery with Intraluminal Device, Percutaneous Approach (ICD-10-PCS; principal; 2025-06-19)
PROC: 03CL3ZZ Extirpation of Matter from Left Internal Carotid Artery, Percutaneous Approach (ICD-10-PCS; 2025-06-19)
PROC: B31RYZZ Fluoroscopy of Intracranial Arteries using Other Contrast (ICD-10-PCS; 2025-06-19)
PROC: B312YZZ Fluoroscopy of Left Subclavian Artery using Other Contrast (ICD-10-PCS; 2025-06-19)
PROC: B41JYZZ Fluoroscopy of Other Lower Arteries using Other Contrast (ICD-10-PCS; 2025-06-19)
PROC: B318YZZ Fluoroscopy of Bilateral Internal Carotid Arteries using Other Contrast (ICD-10-PCS; 2025-06-19)
DX: I63.89 Other cerebral infarction (principal); E78.5 Hyperlipidemia, unspecified; Z95.820 Peripheral vascular angioplasty status with implants and grafts; F17.200 Nicotine dependence, unspecified, uncomplicated; G47.30 Sleep apnea, unspecified; Z53.20 Procedure and treatment not carried out because of patient's decision for unspecified reasons; Z98.61 Coronary angioplasty status; Z79.899 Other long term (current) drug therapy; Z79.82 Long term (current) use of aspirin; Z79.02 Long term (current) use of antithrombotics/antiplatelets; I65.22 Occlusion and stenosis of left carotid artery
CPT/HCPCS: 36415; 61635; 70450; 70496; 70498; 70551; 71045; 80048; 80053; 80061; 80307; 81001; 83036; 83735; 83880; 84443; 84484; 85025; 85610; 85730; 86850; 86900; 86901; 93005; 93306; 93312; 93886; 97163; 99152; 99291; 99292; G0378; J2250; Q9967